=== PATIENT | male | born 1960 | race Caucasian/White ===

== ENCOUNTER 2020-04-24 13:34 | Outpatient (CLI) | payer OTHER, SELFPAY ==
--- NOTE | ~2020-04-24 | CT_ITS ---
EXAMINATION: CT lung screening DATE: 04/24/2020 13:52 INDICATION: Tobacco use TECHNIQUE: Computed tomography (CT) of the chest was performed without intravenous contrast. The dose -length product was 172.05 mGy-cm. Automated exposure control and iterative reconstruction technique were employed. COMPARISON: CT dated 03/24/2019 FINDINGS: No thoracic lymphadenopathy. No significant pleural or pericardial effusion. There is ather osclerosis of the aorta and coronary arteries. Heart size normal. The upper abdomen is unremarkable. Stable 3 mm left upper lobe nodule, image 40. 2 mm right upper lobe nodule, image 57. No new pulmonar y nodules or masses. No endobronchial lesions. No pneumothorax. No focal airspace consolidation. Mild thoracic spondylosis with accentuated kyphosis. IMPRESSION: 1. Lung-RADS category 2: Benign appearance or behavior. Continue annual screening with noncontrast lo w-dose chest CT in 12 months. Reviewed, dictated and finalized at location A. ECTION OFFICER SUPERVISOR IMPRESSION: 1. Lung-RADS category 2: Benign appearance or behavior. Continue annual screeni ng with noncontrast low-dose chest CT in 12 months.
== END 2020-04-24 13:35 | disposition home or self-care (01) ==
PROVIDERS: PCP Family Medicine; Visit Provider Physician Assistant
DX: Z12.2 Encounter for screening for malignant neoplasm of respiratory organs (principal); Z87.891 Personal history of nicotine dependence
CPT/HCPCS: G0297

== ENCOUNTER 2021-05-06 08:05 | Outpatient (CLI) | payer OTHER, SELFPAY ==
--- NOTE | ~2021-05-06 | CT_ITS ---
EXAMINATION: CT lung screening DATE: 05/06/2021 08:20 INDICATION: Personal history of nicotine dependence, current smoker with 30 pack year history TECHNIQUE: Computed tomography (CT) of the chest was performed without intravenous contrast. The dose -length product (DLP) was 156.75 mGy-cm. Automated exposure control and iterative reconstruction tech [employer] were employed. COMPARISON: 04/24/2020 FINDINGS: There is a stable 3 mm nodule in the left upper lobe on image 48. There is a 3 mm groundgla ss nodule of the left lower lobe on image 92. No pathologically enlarged thoracic lymph nodes are harsh ntified. There is no pleural effusion or pneumothorax. The heart size is normal. Calcified coronary a rtery atherosclerosis is noted. There is mild emphysema. There is mild thoracic spondylosis. IMPRESSION: 1. Lung-RADS category 2: Benign appearance or behavior. Continue annual screening with noncontrast lo w-dose chest CT in 12 months. Reviewed, dictated and finalized at location A. UNITY ENGAGEMENT COORDINATOR IMPRESSION: 1. Lung-RADS category 2: Benign appearance or behavior. Continue annual screeni ng with noncontrast low-dose chest CT in 12 months.
== END 2021-05-06 08:06 | disposition home or self-care (01) ==
LOC: ANHIMG 08:07
PROVIDERS: PCP Family Medicine; Visit Provider Physician Assistant
DX: Z12.2 Encounter for screening for malignant neoplasm of respiratory organs (principal); Z87.891 Personal history of nicotine dependence
CPT/HCPCS: 71271

== ENCOUNTER 2021-06-19 01:10 | Day surgery (SDC) | payer OTHER, SELFPAY ==
[2021-06-11 10:31] VITALS: BMI 29.7
--- NOTE | 2021-06-18 15:54 | PM.HPGS ---
History of Present Illness History of Present Illness Consent: Risks, benefits, and alternatives have been discussed and questions answered. Patient agrees to proceed with procedure. Chief complaint: change in bowel habits Narrative: Guanaco Headley is a 60 year old male referred for colonoscopy. He has had a change in his bowel habits. For the past year so he has had at least 3 or 4 bowel movements per day, , sometimes with leakage. Stopping his statin has improved the stool consistency minimally. Review of Systems Review of Systems: All systems reviewed & are unremarkable except as noted in HPI and below PMFSH Past Medical History Medical History Fonseca's esophagus without dysplasia Chronic GERD HTN (hypertension) IFG (impaired fasting glucose) Mixed hyperlipidemia Uncomplicated asthma Family History Family History Mother Hypertension Father Family history of malignant neoplasm of esophagus Other Family history of arthritis Malignant neoplasm of prostate Social History Social History Smoking packs per day: 2 Smoking cigarettes per day: 40.0 Years smoked: 30 Smoking pack-years: 60.00 Smoking status: Current every day smoker Tobacco type: cigarettes and cigars Second hand tobacco smoke exposure: No Smoking end date: 06/01/13 Additional smoking assessment comments: currently smokes cigars,stopped smoking cigarrettes 2011 Alcohol intake: current Drinks per week: 7 Substance use: never Substance use type: does not use Living arrangements: with family Gender identity (if verbalized by the patient): Male Sexual Orientation (if Verbalized by the Patient): Straight or Heterosexual Spiritual care concerns: No Meds Home Medications and Allergies Home Medications Medication Instructions Recorded Confirmed Type naproxen sodium 220 mg tablet 220 mg PO DAILY 05/02/19 06/11/21 History fluticasone 250 mcg-salmeterol 50 See Rx Instructions .ROUTE 07/16/20 06/11/21 Rx mcg/dose blistr powdr for .COMPLEX #60 each inhalation losartan 50 mg tablet 50 mg PO DAILY #90 tablet 12/04/20 06/11/21 Rx montelukast 10 mg tablet 10 mg PO DAILY #90 tablet 02/05/21 06/11/21 Rx albuterol sulfate 90 mcg/actuation 1 puff INHALATION Q4H PRN #18 gm 04/09/21 06/11/21 Rx aerosol inhaler omeprazole 40 mg capsule,delayed 40 mg PO DAILY #90 cap 04/09/21 06/11/21 Rx release rosuvastatin 5 mg tablet 5 mg PO DAILY #90 tablet 05/29/21 06/11/21 Rx metoprolol succinate 25 mg 25 mg PO DAILY #90 tablet 06/04/21 06/11/21 Rx tablet,extended release 24 hr Zyrtec 06/11/21 History aspirin [Aspirin Low Dose] 81 mg PO DAILY 06/11/21 06/11/21 History Allergies Allergy/AdvReac Type Severity Reaction Status Date / Time No Known Drug Allergies Allergy Unknown Unknown Verified 06/19/21 07:16 Exam Resp: Auscultation: clear to auscultation bilaterally Cardio: Rate: regular rate Rhythm: regular rhythm GI: GI Palp: Yes Soft to palpation and No Tenderness to palpation present (GI) Assessment and Plan Assessment and plan (1) Change in bowel habits: Code(s): R19.4 - Change in bowel habit Status: Acute Assessment and Plan: Colonoscopy with possible biopsy or polypectomy or cautery or injection of substances.
--- NOTE | 2021-06-19 02:21 | WPDANESEPPF ---
Anes - Initial Pre Proc Eval Procedure: Operation Date: 06/19/21 08:30 Proposed Procedures p Colonoscopy - Toni Vargas MD Date/Time: 06/19/21 02:21 Surgeon: Toni Vargas MD Pre Op Diagnosis: change in bowel habits Patient Data Age: 60 Gender: M Height: 1.78 m Weight: 94 kg Allergies Allergy/AdvReac Type Severity Reaction Status Date / Time No Known Drug Allergies Allergy Unknown Unknown Verified 06/19/21 07:16 Home Medications Medication Instructions Recorded Confirmed Type naproxen sodium 220 mg tablet 220 mg PO DAILY 05/02/19 06/11/21 History fluticasone 250 mcg-salmeterol 50 See Rx Instructions .ROUTE 07/16/20 06/11/21 Rx mcg/dose blistr powdr for .COMPLEX #60 each inhalation losartan 50 mg tablet 50 mg PO DAILY #90 tablet 12/04/20 06/11/21 Rx montelukast 10 mg tablet 10 mg PO DAILY #90 tablet 02/05/21 06/11/21 Rx albuterol sulfate 90 mcg/actuation 1 puff INHALATION Q4H PRN #18 gm 04/09/21 06/11/21 Rx aerosol inhaler omeprazole 40 mg capsule,delayed 40 mg PO DAILY #90 cap 04/09/21 06/11/21 Rx release rosuvastatin 5 mg tablet 5 mg PO DAILY #90 tablet 05/29/21 06/11/21 Rx metoprolol succinate 25 mg 25 mg PO DAILY #90 tablet 06/04/21 06/11/21 Rx tablet,extended release 24 hr Zyrtec 06/11/21 History aspirin [Aspirin Low Dose] 81 mg PO DAILY 06/11/21 06/11/21 History Patient hx anesthesia problems: none Family hx anesthesia problems: none Results Review: All pre-operative results and documents have been reviewed as part of the pre-operative evaluation. [facility] Past Medical History Medical History Fonseca's esophagus without dysplasia Chronic GERD HTN (hypertension) IFG (impaired fasting glucose) Mixed hyperlipidemia Uncomplicated asthma Family History Family History Mother Hypertension Father Family history of malignant neoplasm of esophagus Other Family history of arthritis Malignant neoplasm of prostate Social History Social History Smoking packs per day: 2 Smoking cigarettes per day: 40.0 Years smoked: 30 Smoking pack-years: 60.00 Smoking status: Current every day smoker Tobacco type: cigarettes and cigars Second hand tobacco smoke exposure: No Smoking end date: 06/01/13 Additional smoking assessment comments: currently smokes cigars,stopped smoking cigarret2011 Alcohol intake: current Drinks per week: 7 Substance use: never Substance use type: does not use Living arrangements: with family Gender identity (if verbalized by the patient): Male Sexual Orientation (if Verbalized by the Patient): Straight or Heterosexual Spiritual care concerns: No Anes - Eval Final PreProcedure Day of Procedure 06/19/21 02:21 Patient weight: overweight Heart: regular rate and rhythm Lungs: clear to auscultation and normal air movement Airway: Mallampati scale class II Neurological: alert and oriented Last oral intake: >/= 8 hours ASA classification: III Emergent: no Anesthetic plan: proceed Anesthesia type and monitoring: general GIVS and standard monitoring Results Review: All pre-operative results and documents have been reviewed as part of the pre-operative evaluation. Informed Consent: The patient's anesthetic plan and its attendant risks and benefits were discussed with the patient/family/POA. Questions were solicited and answers provided to the satisfaction of the patient/family/POA.
[2021-06-19 07:17] VITALS: BP 138/88; PULSE 77; RESP 18; TEMP 36.2; O2SAT 99; BMI 29.7
[2021-06-19] MEDS: LACTATED RINGERS 1,000 ML 150 ML IV CONT (07:27)
[2021-06-19 08:48] VITALS: BP 119/71; PULSE 75; RESP 19; O2SAT 94
[2021-06-19 08:58] VITALS: BP 130/88; PULSE 68; RESP 17; O2SAT 97
[2021-06-19 09:08] VITALS: BP 148/97; PULSE 71; RESP 19; O2SAT 99
== END 2021-06-19 09:14 | disposition home or self-care (01) ==
PROVIDERS: PCP Family Medicine; Visit Provider Internal Medicine Gastroenterology
PROC: 0DJD8ZZ Inspection of Lower Intestinal Tract, Via Natural or Artificial Opening Endoscopic (ICD-10-PCS; CPT 45378; principal; 2021-06-19 08:30)
DX: R19.4 Change in bowel habit (principal); K57.30 Diverticulosis of large intestine without perforation or abscess without bleeding; Z79.51 Long term (current) use of inhaled steroids; Z79.82 Long term (current) use of aspirin; I10 Essential (primary) hypertension; E78.2 Mixed hyperlipidemia; K21.9 Gastro-esophageal reflux disease without esophagitis; J45.909 Unspecified asthma, uncomplicated; F17.290 Nicotine dependence, other tobacco product, uncomplicated
CPT/HCPCS: 45378; J2001; J2704; J7120

== ENCOUNTER 2022-06-17 13:27 | Outpatient (CLI) | payer OTHER, SELFPAY ==
--- NOTE | ~2022-06-17 | CT_ITS ---
EXAMINATION:CT lung screening DATE: 06/17/2022 13:40 INDICATION: Tobacco use. Smoker who quit 11 years ago with 30 pack year history. TECHNIQUE: Computed tomography (CT) of the chest was performed without intravenous contrast. Automate d exposure control and iterative reconstruction technique were employed. The dose-length product (DLP ) was 345.46 mGy-cm. COMPARISON: Chest CT 05/06/2021 FINDINGS: There is mild emphysema. There is minimal atelectasis bilaterally. There is a 2 mm nodule i n right upper lobe. There is a 3 mm nodule in left upper lobe. No pleural effusion. The heart size is normal. There are coronary artery calcifications. No pericardial effusion. There is severe cervical spondylosis and mild thoracic spondylosis. There is mild chronic anterior wedging of multiple thoraci c vertebral bodies. IMPRESSION: 1. Lung-RADS category 2: Benign appearance or behavior. Continue annual screening with noncontrast lo w-dose chest CT in 12 months. Reviewed, dictated and finalized at location A. OR INFORMATION DEVELOPER IMPRESSION: 1. Lung-RADS category 2: Benign appearance or behavior. Continue annual screeni ng with noncontrast low-dose chest CT in 12 months.
== END 2022-06-17 13:28 | disposition home or self-care (01) ==
PROVIDERS: PCP Family Medicine; Visit Provider Physician Assistant
DX: Z12.2 Encounter for screening for malignant neoplasm of respiratory organs (principal); Z87.891 Personal history of nicotine dependence
CPT/HCPCS: 71271

== ENCOUNTER 2023-07-31 04:53 | Day surgery (SDC) | payer OTHER, SELFPAY ==
[2023-07-07 13:48] VITALS: BMI 29.4
--- NOTE | 2023-07-29 14:52 | SUR.PREOP ---
Procedure date and time verified with pt.
--- NOTE | 2023-07-29 19:16 | PM.HPGS ---
History of Present Illness History of Present Illness Consent: Risks, benefits, and alternatives have been discussed and questions answered. Patient agrees to proceed with procedure. Chief complaint: Family hx malignant neoplasm of digestive organs Narrative: Guanaco Headley is a 62 year old male who is referred for EGD due to family hx ofesoph Ca. Review of Systems Review of Systems: All systems reviewed & are unremarkable except as noted in HPI and below PMFSH Past Medical History Medical History Fonseca's esophagus without dysplasia Chronic GERD HTN (hypertension) IFG (impaired fasting glucose) Mixed hyperlipidemia Uncomplicated asthma Family History Family History Mother Hypertension Father Family history of malignant neoplasm of esophagus Other Family history of arthritis Malignant neoplasm of prostate Social History Social History Smoking packs per day: 2 Smoking cigarettes per day: 40.0 Years smoked: 30 Smoking pack-years: 60.00 Smoking status: Former smoker Tobacco type: cigarettes and cigars Second hand tobacco smoke exposure: No Smoking end date: 06/01/13 Additional smoking assessment comments: currently smokes cigars,stopped smoking cigarrettes 2011 Alcohol intake: current Drinks per week: 6 Alcohol use details: beer- social Substance use: never Substance use type: does not use Living arrangements: with family Occupation/Education: occupation Gender identity (if verbalized by the patient): Male Sexual Orientation (if Verbalized by the Patient): Straight or Heterosexual Spiritual care concerns: No Meds Home Medications and Allergies Home Medications Medication Instructions Recorded Confirmed Type naproxen sodium 220 mg tablet 220 mg PO DAILY 05/02/19 07/31/23 History (Aleve) aspirin 81 mg tablet,delayed 81 mg PO DAILY 06/11/21 07/31/23 History release ([place]helsea Low Dose Aspirin) losartan 100 mg tablet 100 mg PO DAILY #90 tabs 12/16/22 07/31/23 Rx metoprolol succinate 25 mg 25 mg PO DAILY #90 tabs 02/06/23 07/31/23 Rx tablet,extended release 24 hr rosuvastatin 5 mg tablet (Crestor) 5 mg PO DAILY #90 tabs 02/11/23 07/31/23 Rx montelukast 10 mg tablet 10 mg PO DAILY #90 tabs 03/03/23 07/31/23 Rx cetirizine 10 mg tablet (Zyrtec) 10 mg PO DAILY 07/07/23 07/31/23 History omeprazole 40 mg capsule,delayed 40 mg PO DAILY 07/07/23 07/31/23 History release albuterol sulfate 90 mcg/actuation See Rx Instructions .Route 07/24/23 07/31/23 Rx aerosol inhaler .COMPLEX #8.5 grams Allergies Allergy/AdvReac Type Severity Reaction Status Date / Time No Known Allergies Allergy Verified 07/31/23 07:34 Exam Const: General: alert Orientation/consciousness: patient oriented x3 Resp: Auscultation: clear to auscultation bilaterally Cardio: Rhythm: regular rhythm GI: GI Palp: Yes Soft to palpation and No Tenderness to palpation present (GI) Neuro: General: patient oriented x3 Assessment and Plan Assessment and plan (1) Chronic GERD: Code(s): K21.9 - Gastro-esophageal reflux disease without esophagitis Status: Acute Assessment and Plan: EGD with possible biopsy or dilatation or cautery.
[2023-07-31 07:37] VITALS: BP 145/88; PULSE 70; RESP 16; TEMP 36.4; O2SAT 99
[2023-07-31] MEDS: LACTATED RINGERS 1,000 ML 150 ML IV CONT (07:53)
--- NOTE | 2023-07-31 08:20 | WPDANESEPPF ---
Anes - Initial Pre Proc Eval Procedure: Operation Date: 07/31/23 08:30 Proposed Procedures p Esophagogastroduodenoscopy - Toni Vargas MD Date/Time: 07/31/23 08:20 Surgeon: Toni Vargas MD Pre Op Diagnosis: Family hx malignant neoplasm of digestive organs Patient Data Age: 62 Gender: M Height: 1.78 m Weight: 93.9 kg Last Vital Signs Temp 36.4 C 07/31/23 07:37 Pulse 70 07/31/23 07:37 Resp 16 07/31/23 07:37 BP 145/88 H 07/31/23 07:37 Pulse Ox 99 07/31/23 07:37 O2 Del Method Room Air 07/31/23 07:37 Allergies Allergy/AdvReac Type Severity Reaction Status Date / Time No Known Allergies Allergy Verified 07/31/23 07:34 Home Medications Medication Instructions Recorded Confirmed Type naproxen sodium 220 mg tablet 220 mg PO DAILY 05/02/19 07/31/23 History (Aleve) aspirin 81 mg tablet,delayed 81 mg PO DAILY 06/11/21 07/31/23 History release ([place]sea Low Dose Aspirin) losartan 100 mg tablet 100 mg PO DAILY #90 tabs 12/16/22 07/31/23 Rx metoprolol succinate 25 mg 25 mg PO DAILY #90 tabs 02/06/23 07/31/23 Rx tablet,extended release 24 hr rosuvastatin 5 mg tablet (Crestor) 5 mg PO DAILY #90 tabs 02/11/23 07/31/23 Rx montelukast 10 mg tablet 10 mg PO DAILY #90 tabs 03/03/23 07/31/23 Rx cetirizine 10 mg tablet (Zyrtec) 10 mg PO DAILY 07/07/23 07/31/23 History omeprazole 40 mg capsule,delayed 40 mg PO DAILY 07/07/23 07/31/23 History release albuterol sulfate 90 mcg/actuation See Rx Instructions .Route 07/24/23 07/31/23 Rx aerosol inhaler .COMPLEX #8.5 grams Patient hx anesthesia problems: none Family hx anesthesia problems: none Results Review: All pre-operative results and documents have been reviewed as part of the pre-operative evaluation. [facility] Past Medical History Medical History Fonseca's esophagus without dysplasia Chronic GERD HTN (hypertension) IFG (impaired fasting glucose) Mixed hyperlipidemia Uncomplicated asthma Family History Family History Mother Hypertension Father Family history of malignant neoplasm of esophagus Other Family history of arthritis Malignant neoplasm of prostate Social History Social History Smoking packs per day: 2 Smoking cigarettes per day: 40.0 Years smoked: 30 Smoking pack-years: 60.00 Smoking status: Former smoker Tobacco type: cigarettes and cigars Second hand tobacco smoke exposure: No Smoking end date: 06/01/13 Additional smoking assessment comments: currently smokes cigars,stopped smoking cigarrettes 2011 Alcohol intake: current Drinks per week: 6 Alcohol use details: beer- social Substance use: never Substance use type: does not use Living arrangements: with family Occupation/Education: occupation Gender identity (if verbalized by the patient): Male Sexual Orientation (if Verbalized by the Patient): Straight or Heterosexual Spiritual care concerns: No Anes - Eval Final PreProcedure Day of Procedure 07/31/23 08:20 Patient weight: overweight Heart: regular rate and rhythm Lungs: clear to auscultation Airway: Mallampati scale class II Neurological: alert and oriented Last oral intake: >/= 8 hours ASA classification: III Emergent: no Anesthetic plan: proceed Anesthesia type and monitoring: general GIVS and standard monitoring Results Review: All pre-operative results and documents have been reviewed as part of the pre-operative evaluation. Informed Consent: The patient's anesthetic plan and its attendant risks and benefits were discussed with the patient/family/POA. Questions were solicited and answers provided to the satisfaction of the patient/family/POA.
[2023-07-31 09:04] VITALS: BP 139/81; PULSE 73; RESP 22; O2SAT 99
[2023-07-31 09:14] VITALS: BP 140/77; PULSE 72; RESP 20; O2SAT 99
[2023-07-31 09:24] VITALS: BP 124/70; PULSE 67; RESP 20; O2SAT 99
== END 2023-07-31 09:32 | disposition home or self-care (01) ==
PROVIDERS: PCP Family Medicine; Visit Provider Internal Medicine Gastroenterology
PROC: 0DJ08ZZ Inspection of Upper Intestinal Tract, Via Natural or Artificial Opening Endoscopic (ICD-10-PCS; CPT 43235; principal; 2023-07-31 08:30)
DX: K21.00 Gastro-esophageal reflux disease with esophagitis, without bleeding (principal); K22.70 Barrett's esophagus without dysplasia; I10 Essential (primary) hypertension; E78.2 Mixed hyperlipidemia; J45.909 Unspecified asthma, uncomplicated; Z79.1 Long term (current) use of non-steroidal anti-inflammatories (NSAID); Z79.82 Long term (current) use of aspirin; Z79.51 Long term (current) use of inhaled steroids; Z87.891 Personal history of nicotine dependence; Z80.42 Family history of malignant neoplasm of prostate; Z80.0 Family history of malignant neoplasm of digestive organs
CPT/HCPCS: 43239; 88305; J2704; J7120

== ENCOUNTER 2024-07-13 09:57 | Outpatient (CLI) | payer OTHER, SELFPAY ==
--- NOTE | ~2024-07-13 | CT_ITS ---
CT Scan of the Chest without Contrast: Clinical Indication: Lung cancer screening, nicotine dependence Technique: Contiguous sections were acquired throughout the chest without intravenous contrast. Dose reduction technique was used on this scan by utilizing automated exposure control and iterative recon struction technique. The dose-length product (DLP) was 141.77 mGy-cm. COMPARISON: 06/17/2022 Findings: There is no evidence of any significant mediastinal, hilar or axillary lymphadenopathy. The mediastin al soft tissues appear normal. There is no evidence of pleural or pericardial effusion. The lungs are clear. No pulmonary nodules or infiltrates are noted. Images through the upper abdomen reveal no abnormalities. Impression: Lung RADS 1: Negative. 12 month follow-up screening CT advised. Reviewed, dictated and finalized at location . [facility] Impression: Lung RADS 1: Negative. 12 month follow-up screening CT advised.
--- OUTSIDE RECORDS SUMMARY | 2024-07-13 10:56 | XMS_ITS | Continuity of Care Document ---
Author Name [facility] Organization [facility] Care Team Providers Care [employer] Blower Name Role Phone [facility] Unavailable Unavailable Problems Combined list of problems from Department of Defense and Veterans Affairs facilities. It does not include entries that were removed or entered in error. Problem Status Onset Date Problem Type Date of Resolution Comments Source backache Active Condition will refer to PT for further eval and treatment. DoD visit for: examination Active Condition 2808 and 2807 given to pt for completion - to have fasting labs done and will perform [employer] 5 year physical in conjunction with possible MEB for asthma. DoD asthma Active Condition Will dionne nue with current regimen of Advair, Singulair and rescue inhaler as needed. MEB will be performed. DoD Aftercare Orthopedic Active Condition DoD pain during urination (dysuria) Active Condition DoD Aftercare Following Surgery Active Condition DoD bronchospasm Inactive Condition will st art pt on Advair given frequency of use of Proventil - may continue to use proventil as rescue inhaler and will refer for PFT's with methacholine challenge to better confirm asthma - if so, will need MEB. 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 DoD Occupational Therapy Inactive Condition DoD umbilical hernia Active Condition DoD flat foot acquired (pes planus) Active Condition Will refer to [facility]. DoD lateral epicondylitis (tennis elbow) Active Condition ASSESSMENT/PL AN: All goals of occupational therapy have been -- discharge from OT. 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 [facility] routine history and physical adult (18 - 64 yrs) Inactive Condition Patient cleared for surgery [facility] visit for: preoperative orthopedic exam Inactive Condition Right knee medial meniscal tear DoD internal derangement of posterior horn medial meniscus of knee Active Condition B/L knees - Right knee more symptomatic than Left knee DoD acute meniscal tear lateral Active Condition DoD joint pain, localized in the knee Active Condition Reviewed results, patient informed of referral and contact # to call to schedule an appointment. Patient verbalized understanding. [facility] visit for: administrative purpose Active Condition DoD Blood Pressure Isolated Elevated Inactive Condition Pt to keep a BP log and to follow-up with log in 3-4 weeks. DoD Medications Combined list of outpatient medications from Department of Defense and Veterans Affairs facilities.Medications provided include 1) outpatient medications from the last 15 months, and 2) patient-reported medications. Medication Details Route Status Patient Instructions Prescription Expires Prescription Number Last Dispense Date Ordering Provider Order Date Order Qty Source ALBUTEROL SULFATE HFA (albuterol sulfate), 90 MCG, HFA AER AD, INHALATION, [place], 8.5 g CANISTER Active [id number] 4 2023 8.5 Pharmac y Data Transac tion Service Facilit y ALBUTEROL SULFATE HFA (albuterol sulfate), 90 MCG, HFA AER AD, INHALATION, [place], 8.5 g CANISTER Active [id number] 4 2023 8.5 Pharmac y Data Transac tion Service Facilit y ALBUTEROL SULFATE HFA (albuterol sulfate), 90 MCG, HFA AER AD, INHALATION, [place], 8.5 g CANISTER Active [id number] 4 2023 8.5 Pharmac y Data Transac tion Service Facilit y ALBUTEROL SULFATE HFA (albuterol sulfate), 90 MCG, HFA AER AD, INHALATION, [place], 8.5 g CANISTER Active [id number] 4 2023 8.5 Pharmac y Data Transac tion Service Facilit y ALBUTEROL SULFATE HFA (albuterol sulfate), 90 MCG, HFA AER AD, INHALATION, [place], 8.5 g CANISTER Active [id number] 4 2023 8.5 Pharmac y Data Transac tion Service Facilit y ALBUTEROL SULFATE HFA (albuterol sulfate), 90 MCG, HFA AER AD, INHALATION, [place], 8.5 g CANISTER Active [id number] 4 2023 8.5 Pharmac y Data Transac tion Service Facilit y ALBUTEROL SULFATE HFA (albuterol sulfate), 90 MCG, HFA AER AD, INHALATION, [place], 8.5 g CANISTER Active [id number] 4 2023 8.5 Pharmac y Data Transac tion Service Facilit y ALBUTEROL SULFATE HFA (albuterol sulfate), 90 MCG, HFA AER AD, INHALATION, [place], 8.5 g CANISTER Active [id number] 3 2022 8.5 Pharmac y Data Transac tion Service Facilit y ALBUTEROL SULFATE HFA (albuterol sulfate), 90 MCG, HFA AER AD, INHALATION, [place], 8.5 g CANISTER Active [id number] 4 2023 8.5 Pharmac y Data Transac tion Service Facilit y ALBUTEROL SULFATE HFA (albuterol sulfate), 90 MCG, HFA AER AD, INHALATION, [place], 8.5 g CANISTER Active [id number] 4 2023 8.5 Pharmac y Data Transac tion Service Facilit y ALBUTEROL SULFATE HFA (albuterol sulfate), 90 MCG, HFA AER AD, INHALATION, [place]EVA [place], 8.5 g CANISTER Active [id number] 4 2023 8.5 Pharmac y Data Transac tion Service Facilit y AMOX TR-POTASSIU M CLAVULANATE (AMOXICILLI N/POTASSIUM CLAV), 500-125 MG, TABLET, ORAL, SANDOZ, 20 ea. BOTTLE Active [id number] 4 2023 21 Pharmac y Data Transac tion Service Facilit y AMOXICILLIN (AMOXICILLI N), 500 MG, CAPSULE, ORAL, SANDOZ, 500 ea. BOTTLE Active [id number] 4 2023 28 Pharmac y Data Transac tion Service Facilit y LOSARTAN POTASSIUM (losartan potassium), 100 MG, TABLET, ORAL, XLCARE PHARMACE, 1000 ea. BOTTLE Active [id number] 4 2023 90 Pharmac y Data Transac tion Service Facilit y METHYLPREDN ISOLONE (methylpred nisolone), 4 MG, TAB DS PK, ORAL, ZYDUS PHARMACEU, 21 ea. DOSE-PACK Active [id number] 4 2023 21 Pharmac y Data Transac tion Service Facilit y METOPROLOL SUCCINATE (metoprolol succinate), 25 MG, TAB ER 24H, ORAL, [employer] 1000 ea. BOTTLE Active [id number] 4 2023 90 Pharmac y Data Transac tion Service Facilit y METOPROLOL SUCCINATE (metoprolol succinate), 25 MG, TAB ER 24H, ORAL, [employer] 1000 ea. BOTTLE Active [id number] 4 2023 90 Pharmac y Data Transac tion Service Facilit y MONTELUKAST SODIUM (montelukas t sodium), 10 MG, TABLET, ORAL, XLCARE PHARMACE, 90 ea. BOTTLE Active [id number] 4 2023 90 Pharmac y Data Transac tion Service Facilit y MONTELUKAST SODIUM (montelukas t sodium), 10 MG, TABLET, ORAL, [employer] PHARMACE, 90 ea. BOTTLE Active [id number] 4 2023 90 Pharmac y Data Transac tion Service Facilit y OMEPRAZOLE (omeprazole ), 40 MG, CAPSULE DR, ORAL, AUROB[employer]O PHARM, 500 ea. BOTTLE Cancele d [id number] : 2023 0 Pharmac y Data Transac tion Service Facilit y ROSUVASTATI N CALCIUM (rosuvastat in calcium), 5 MG, TABLET, ORAL, [employer] 1000 ea. BOTTLE Active [id number] 2023 90 Pharmac y Data Transac tion Service Facilit y ROSUVASTATI N CALCIUM (rosuvastat in calcium), 5 MG, TABLET, ORAL, [employer] 1000 ea. BOTTLE Cancele d [id number] : 2023 0 Pharmac y Data Transac tion Service Facilit y Allergies, Adverse Reactions, Alerts Combined list of allergies from Department of Defense and Veterans Affairs facilities. It does not include entries that were removed or entered in error. Substance Category Reaction Severity Reaction type Status Date Reported Comments Source OTHER Drug allergy (disorder) Unknown active 7 [employer] ([facility]) OTHER Propensity to adverse reactions to drug Unknown Active 7 71 93.1KG [id number] Ambulatory Pharmacy Immunizations Combined list of available immunizations from the Department of Defense and Veterans Affairs facilities. Immunization Series Date Given Administered By Site Reaction Lot Number CVX Code Drug [employer] Status Comments Source RSV vaccine preF3, recombinant 2022 303 GlaxoSmithKli ne complet ed RSV vaccine preF3, recombina nt 03/17/23 Given Ambulat ory Pharmac y Influenza, inj, MDCK, quadrivalent- pf 2022 171 Seqirus complet ed Influenza , inj, MDCK, quadrival ent-pf 03/17/23 Given Ambulat ory Pharmac y Influenza, inj, MDCK, quadrivalent- pf 2021 171 [employer] complet ed Influenza , inj, MDCK, quadrival ent-pf 04/01/22 Given Ambulat ory Pharmac y SARS-CoV-2 (COVID-19) Ad26 vaccine, rec 2020 212 complet ed SARS-CoV- 2 (COVID-19 ) Ad26 vaccine, rec 05/13/21 Given Ambulat ory Pharmac y COVID-19 vaccine, vector-nr, rS-Ad26, PF, 0.5 mL 2020 ALUL, () Not Given COVID-19 vaccine, vector-nr , rS-Ad26, PF, 0.5 mL DoD influenza virus vaccine, inactivated 2020 88 complet ed influenza virus vaccine, inactivat ed 04/02/21 Given Ambulat ory Pharmac y influenza, recombinant, quadrivalent, injectable, preservative free 2020 ALUL, () Not Given influenza , recombina nt, quadrival ent,injec table, preservat shima free DoD SARS-CoV-2 (COVID-19) Ad26 vaccine, rec 2020 212 complet ed SARS-CoV- 2 (COVID-19 ) Ad26 vaccine, rec 10/18/20 Given Ambulat ory Pharmac y COVID-19 vaccine, vector-nr, rS-Ad26, PF, 0.5 mL 2020 BIPINAL () Not Given COVID-19 vaccine, vector-nr , rS-Ad26, PF, 0.5 mL DoD influenza virus vaccine, inactivated 2019 88 complet ed influenza virus vaccine, inactivat ed 03/06/20 Given Ambulat ory Pharmac y influenza, recombinant, quadrivalent, injectable, preservative free 2019 ALUL, () Not Given influenza , recombina nt, quadrival ent,injec table, preservat shima free DoD zoster vaccine, inactivated 2019 187 complet ed zoster vaccine, inactivat ed 07/12/19 Given Ambulat ory Pharmac y zoster recombinant 2019 ALUL, () Not Given zoster recombina nt DoD zoster vaccine, inactivated 2018 187 GlaxoSmithKli ne complet ed zoster vaccine, inactivat ed 03/21/19 Given Ambulat ory Pharmac y typhoid Vi capsular polysaccharid e vac 2006 F0246-0 101 sanofi pasteur complet ed typhoid Vi capsular polysacch aride vac 04/27/07 Given Ambulat ory Pharmac y anthrax vaccine 2006 [id number] [employer] complet ed anthrax vaccine 04/27/07 Given Ambulat ory Pharmac y HepB, Adult 2006 [id number] 43 GlaxoSmithKli ne complet ed HepB, Adult 04/27/07 Given Ambulat ory Pharmac y anthrax vaccine 5 2006 [id number] [employer] [place] (MIP) complet ed anthrax vaccine DoD hepatitis B vaccine, adult dosage 1 2006 [id number] 43 [facility] (SKB) complet ed hepatitis B vaccine, adult dosage DoD typhoid Vi capsular polysaccharid e vaccine 1 2006 [id number] 101 Sanofi Pasteur (PMC) complet ed typhoid Vi capsular polysacch aride vaccine DoD influenza virus vaccine,split 2006 15 complet ed influenza virus vaccine,s plit 03/22/07 Given Ambulat ory Pharmac y influenza virus vaccine, split virus (incl. purified surface antigen)-reti red CODE 1 2006 15 Transcribed (TRS) complet ed influenza virus vaccine, split virus (incl. purified surface antigen)- retired CODE DoD tetanus-dipht h toxoids (Td) adult/adol 2004 09 complet ed tetanus-d iphth toxoids (Td) adult/ado l 09/18/04 Given Ambulat ory Pharmac y yellow fever vaccine 2004 37 complet ed yellow fever vaccine 09/18/04 Given Ambulat ory Pharmac y tetanus and diphtheria toxoids, adsorbed, preservative free, for adult use (2 Lf of tetanus toxoid and 2 Lf of diphtheria toxoid) 1 2004 09 Transcribed (TRS) complet ed tetanus and diphtheri a toxoids, adsorbed, preservat shima free, for adult use (2 Lf of tetanus toxoid and 2 Lf of diphtheri a toxoid) DoD yellow fever vaccine 1 2004 37 Transcribed (TRS) complet ed yellow fever vaccine DoD tuberculin purified protein derivative 2004 96 complet ed Patient Tolerance : Negative Ambulat ory Pharmac y tuberculin skin test; purified protein derivative solution, intradermal 1 2004 Unknown, Provider 96 Transcribed (TRS) complet ed tuberculi n skin test; purified protein derivativ e solution, intraderm al DoD anthrax vaccine 2002 24 complet ed anthrax vaccine 12/13/02 Given Ambulat ory Pharmac y anthrax vaccine 5 2002 24 Transcribed (TRS) complet ed anthrax vaccine DoD anthrax vaccine 2002 24 complet ed anthrax vaccine 06/30/02 Given Ambulat ory Pharmac y vaccinia (smallpox) vaccine 2002 75 complet ed vaccinia (smallpox ) vaccine 06/30/02 Given Ambulat ory Pharmac y anthrax vaccine 4 2002 24 Transcribed (TRS) complet ed anthrax vaccine DoD vaccinia (smallpox) vaccine 1 2002 75 Transcribed (TRS) complet ed vaccinia (smallpox ) vaccine DoD hepatitis A adult vaccine 1997 52 complet ed hepatitis A adult vaccine 05/10/98 Given Ambulat ory Pharmac y hepatitis A vaccine, adult dosage 2 1997 52 Transcribed (TRS) complet ed hepatitis A vaccine, adult dosage DoD anthrax vaccine 1997 24 complet ed anthrax vaccine 12/24/97 Given Ambulat ory Pharmac y anthrax vaccine 3 1997 24 Transcribed (TRS) complet ed anthrax vaccine DoD anthrax vaccine 1997 24 complet ed anthrax vaccine 12/10/97 Given Ambulat ory Pharmac y anthrax vaccine 2 1997 24 Transcribed (TRS) complet ed anthrax vaccine DoD anthrax vaccine 1997 24 complet ed anthrax vaccine 11/26/97 Given Ambulat ory Pharmac y anthrax vaccine 1 1997 24 Transcribed (TRS) complet ed anthrax vaccine DoD hepatitis A adult vaccine 1997 52 complet ed hepatitis A adult vaccine 06/20/97 Given Ambulat ory Pharmac y hepatitis A vaccine, adult dosage 1 1997 52 Transcribed (TRS) complet ed hepatitis A vaccine, adult dosage DoD measles/mumps /rubella virus vaccine 1983 03 complet ed measles/m umps/rube lla virus vaccine 01/06/84 Given Ambulat ory Pharmac y poliovirus vaccine, live, oral 1983 02 complet ed polioviru s vaccine, live, oral 01/06/84 Given Ambulat ory Pharmac y trivalent poliovirus vaccine, live, oral 1 1983 02 Transcribed (TRS) complet ed trivalent polioviru s vaccine, live, oral DoD measles, mumps and rubella virus vaccine 1 1983 03 Transcribed (TRS) complet ed measles, mumps and rubella virus vaccine DoD Encounters Combined list of: 1) Encounters from Department of Veterans Affairs facilities going backup to the last 18 months, not all VA inpatient encounters are included; 2) Encounters from the Department of Defense facilities going backup to 280 months. Location Location Details Encounter Type Encounter Number Reason For Visit Attending Provider ADM Date DC Date Status Disposition Source [address] [place] [address] [facility] MART[facility]NEZ ([facility])(Fam giancarlo Practice Non-GME FHI2) OUTPATIENT [id number] R KNEE PAIN HERRERA JUAN 09/24 Released w/o Limitations [address] [place] [address] [employer] [facility] ([facility])(F amily Practic e Non-GME FHI2) [address] [place] [address] [place] YUKOB ([facility])([facility] Practice Non-GME FHI2) TELE CONSULT [id number] rad results /mri CLAUDIOJOSEJAC A 09/[address] [place] [address] [facility] YUKOB ([facility])(F amily Practic e Non-GME FHI2) [address] [place] [address] [employer] YUKOB ([facility])([facility] Practice Non-GME FHI2) TELE CONSULT [id number] MRI r knee results /referr al JAC CLAUDIO A 10/[address] [place] [address] [facility] YUKOB ([facility])(F amily Practic e Non-GME FHI2) [address] [place] [address] [facility] HUNTLEYB ([facility] OUTPATIENT [id number] right knee pain ISABELBOB COLTEN R M 10/13 Released w/o Limitations [address] [place] [address] [employer] YUKOB ([facility])(V A - Orthope dics) [address] [place] [address] [facility] HUNTLEY[facility] ([facility])([place] - Orthopedi ) OUTPATIENT [id number] knee pain RYAN CASTREJONE R M 03/20 Released w/o Limitations [address] [place] [address] [facility] ([facility])(V A - Orthope dics) [address] [place] [address] [facility] [facility] ([facility])([place] - Orthopedi ) OUTPATIENT [id number] knee FUCBOB COLTEN R M 04/01 Released w/o Limitations [address] [place] [address] [facility] [facility] ([facility])(V A - Orthope dics) [address] [place] [address] [facility] [facility] ([facility])([place] - Orthopedi ) OUTPATIENT [id number] f/u MRI possibl e surgery MANDEEP ASTUDILLO 04/21 Released w/o Limitations [address] [place] [address] [employer] ([facility])(V A - Orthope dics) [address] [place] [address] [facility] [facility] ([facility])([place] - Orthopedi ) OUTPATIENT [id number] svitlana qiu NEIL L 05/28 Released w/o Limitations [address] [place] [address] [employer] [facility] ([facility])(V A - Orthope dics) [address] [place] [address] [place] [facility] ([facility])([facility] Non-GME FHI1) OUTPATIENT [id number] surgica l clearan ce/pt to have surg on Jun in the [facility] VICTOR MANUEL ABEL P 05/28 Released w/o Limitations [address] [place] [address] [place] [facility] ([facility])(F amily Practic e Non-GME FHI1) [address] [place] [address] [place] [facility] Practice Non-GME FHI1) TELE CONSULT [id number] Xray results , and med trial VICTOR MANUEL ABEL P 06/[address] [place] [address] [employer] Y[place]OB ([facility])(F amily Practic e Non-GME FHI1) [address] [place] [address] [place] B ([facility])([place] - Orthopedi cs) OUTPATIENT [id number] POP MANDEEP ASTUDILLO 06/23 Released w/o Limitations [address] [place] [address] [employer] [facility]OB ([facility])(V A - Orthope dics) [address] [place] [address] [employer] [facility] Orthopedi cs) OUTPATIENT [id number] f/u rt knee MANDEEP ASTUDILLO 07/24 Released w/o Limitations [address] [place] [address] [employer] B ([facility])(V A - Orthope dics) [address] [place] [address] [facility] B [facility]Opt ometry) OUTPATIENT [id number] ROUTINE EYE EXAM. PHONE:[phone]*C NIKOLAY BILL 09/15 Released w/o Limitations [address] [place] [address] [employer] ([facility])(O ptometr y) [address] [place] [address] [employer] B ([facility])([facility] Non-GME FHI2) OUTPATIENT [id number] TENNIS ELBOW [phone] HERRERA JUAN 11/12 Released w/o Limitations [address] [place] [address] [employer] ([facility])(F amily Practic e Non-GME FHI2) [address] [place] [address] [place] B [facility]Occ upational Therapy) OUTPATIENT [id number] LATERAL EPICOND YLITIS (TENNIS ELBOW) LATOYA MANUEL 11/18 Released w/o Limitations [address] [place] [address] [employer] ([facility])(O ccupati onal Therapy ) [address] [place] [address] [place] B [facility]Occ upational Therapy) OUTPATIENT [id number] DAVID BARRAGAN 11/19 Released w/o Limitations [employer] ([facility])(O ccupati onal Therapy ) [employer] ([facility])(Occ upational Therapy) OUTPATIENT [id number] DAVID BARRAGAN 11/23 Released w/o Limitations [employer] ([facility])(O ccupati onal Therapy ) [employer] ([facility])(Occ upational Therapy) OUTPATIENT [id number] DAVID BARRAGAN 11/25 Released w/o Limitations [employer] ([facility])(O ccupati onal Therapy ) [employer] ([facility])(Occ upational Therapy) OUTPATIENT [id number] DAVID BARRAGAN 12/01 Released w/o Limitations [employer] ([facility])(O ccupati onal Therapy ) [employer] ([facility])(Occ upational Therapy) OUTPATIENT [id number] DAVID BARRAGAN 12/03 Released w/o Limitations [employer] ([facility])(O ccupati onal Therapy ) [employer] ([facility])(Occ upational Therapy) OUTPATIENT [id number] HAILEY ROMAN 12/08 Released w/o Limitations [employer] ([facility])(O ccupati onal Therapy ) [employer] ([facility])(Occ upational Therapy) OUTPATIENT [id number] HAILEY ROMAN 12/10 Released w/o Limitations [employer] ([facility])(O ccupati onal Therapy ) [employer] ([facility])(Occ upational Therapy) OUTPATIENT [id number] JESSIEHAILEY 12/16 Released w/o Limitations [employer] ([facility])(O ccupati onal Therapy ) [employer] ([facility])(Occ upational Therapy) OUTPATIENT [id number] LATOYA MANUEL 12/25 Released w/o Limitations [employer] ([facility])(O ccupati onal Therapy ) [employer] ([facility])(Occ upational Therapy) OUTPATIENT [id number] DAVID BARRAGAN 01/05 Released w/o Limitations [employer] ([facility])(O ccupati onal Therapy ) [employer] ([facility])(Occ upational Therapy) OUTPATIENT [id number] DAVID BARRAGAN 01/07 Released w/o Limitations [employer] ([facility])(O ccupati onal Therapy ) [employer] ([facility])(Occ upational Therapy) OUTPATIENT [id number] DAVID BARRAGAN 01/19 Released w/o Limitations [employer] [facility] ([facility])(O ccupati onal Therapy ) [employer] ([facility])(Occ upational Therapy) OUTPATIENT [id number] DAVID BARRAGAN 01/21 Released w/o Limitations [employer] [facility] ([facility])(O ccupati onal Therapy ) [facility] [employer] ([facility])(Occ upational Therapy) OUTPATIENT [id number] LATOYA MANUEL 01/27 Released w/o Limitations [employer] [facility] ([facility])(O ccupati onal Therapy ) [employer] ([facility])([facility]) OUTPATIENT [id number] STACIE HERRERA BARNES 04/29 Released w/o Limitations [employer] [facility] ([facility])([facility]) [employer] [facility] [employer] ([facility])([facility] Non-GME FHI2) OUTPATIENT [id number] Consult ation [facility] ent Reza gonzalez W# HERRERA JUAN 05/03 Released w/o Limitations [employer] [facility] ([facility])(F amily Practic e Non-GME FHI2) [employer] ([facility])(Fam giancarlo Practice Non-GME FHI2) TELE CONSULT [id number] FARRUKH WILLIAM 05/07 [employer] ([facility])(F amily Practic e Non-GME FHI2) [employer] ([facility])(Gen eral Surgery) OUTPATIENT [id number] UMBILIC AL HERNIA HILDA VELÁZQUEZ 05/19 Released w/o Limitations [address] [place] [address] [employer] ([facility])(G eneral Surgery ) [address] [place] [address] [employer] ([facility])([place] - Orthopedi cs) OUTPATIENT [id number] ACUTE MENISCA L TEAR LATERAL NIKOLAY ARNOLD 05/20 Released w/o Limitations [address] [place] [address] [employer] ([facility])(V A - Orthope dics) [address] [place] [address] [employer] [facility])(Pul monary Functions ) OUTPATIENT [id number] Broncho spasm MAI WEEKS 05/26 Released w/o Limitations [address] [place] [address] [employer] ([facility])(P ulmonar y Functio ns) [address] [place] [address] [employer] [facility] Practice Non-GME FHI1) TELE CONSULT [id number] results /req [facility] FARRUKH Watkins 06/[address] [place] [address] [employer] ([facility])(F amily Practic e Non-GME FHI1) [address] [place] [address] [employer] [facility])(Gen eral Surgery) OUTPATIENT [id number] postop, HILDA Diaz 07/08 Released w/o Limitations [address] [place] [address] [employer] ([facility])(G eneral Surgery ) [address] [place] [address] [employer] ([facility])([facility] Practice Non-GME FHI2) OUTPATIENT [id number] FU PULMONA RY TESTS PER HERRERA MUÑOZ 07/08 Released w/o Limitations [address] [place] [address] [employer] ([facility])(F amily Practic e Non-GME FHI2) [address] [place] [address] [employer] [facility] Practice Non-GME FHI2) TELE CONSULT [id number] [facility] FARRUKH Watkins 07/[address] [place] [address] [employer] [facility])(F amily Practic e Non-GME FHI2) [address] [place] [address] [employer] [facility] - Orthoped[facility] cs) OUTPATIENT [id number] preop NIKOLAY ARNOLD 08/08 Released w/o Limitations [address] [place] [address] [employer] [facility]V A - Orthope dics) [address] [place] [address] [employer] [facility])(Gen eral Surgery) OUTPATIENT [id number] f/u, HILDA Diaz 08/09 Released w/o Limitations [address] [place] [address] [employer] ([facility])(G eneral Surgery ) [address] [place] [address] [employer] [facility] - Orth[facility] cs) OUTPATIENT [id number] postop, NIKOLAY Reyes 08/29 Released w/o Limitations [address] [place] [address] [employer] [facility])(V A - Orthope dics) [address] [place] [address] [employer] [facility])(Fam giancarlo Practice Non-GME FHI1) TELE CONSULT [id number] refill meds/mo FARRUKH Alfonso 09/[address] [place] [address] [employer] [facility])(F amily Practic e Non-GME FHI1) [address] [place] [address] [employer] [facility]Fam giancarlo Practice Non-GME FHI2) OUTPATIENT [id number] asthma fol HERRERA JUAN 09/16 Released w/o Limitations [address] [place] [address] [employer] [facility])(F amily Practic e Non-GME FHI2) [address] [place] [address] [employer] [facility]Fam giancarlo Practice Non-GME FHI2) OUTPATIENT [id number] 5year physica l/meHERRERA Cowart 10/03 Released w/o Limitations [address] [place] [address] [employer] [facility])(F amily Practic e Non-GME FHI2) [address] [place] [address] [employer] [facility])(Opt ometry) OUTPATIENT [id number] routine eye exam MATTY BUTTERFIELD 10/10 Released w/o Limitations [address] [place] [address] [employer] [facility]O ptometr y) [address] [place] [address] [employer] [facility]Fam giancarlo Practice Non-GME FHI2) OUTPATIENT [id number] retirem ent gonzaloy. HERRERA JUAN 03/15 Released w/o Limitations [address] [place] [address] [employer] [facility])(F amily Practic e Non-GME FHI2) [facility] Outpatient Encounter [id number] 8 12/13 [facility] Procedures Combined list of: 1) Procedures from Department of Veterans Affairs facilities going back up to thelast 18 months, not all VA non-surgical procedures are included; 2) All procedures from the Department of Defense facilities. Procedure Procedure Type Code Date Perfomer Comments Sourc e LASER IN SITU KERATOMILEUSIS (LASIK) DoD COMPUTERIZED CORNEAL TOPOGRAPHY, UNILATERAL DoD PURE TONE AUDIOMETRY (THRESHOLD); AIR ONLY 005 DoD OPHTHALMOLOGICAL SERVICES: MEDICAL EXAMINATION AND EVALUATION, WITH INITIATION OR CONTINUATION OF DIAGNOSTIC AND TREATMENT PROGRAM; INTERMEDIATE, ESTABLISHED PATIENT DoD OPHTHALMOLOGICAL SERVICES: MEDICAL EXAMINATION AND EVALUATION, WITH INITIATION OR CONTINUATION OF DIAGNOSTIC AND TREATMENT PROGRAM; INTERMEDIATE, ESTABLISHED PATIENT DoD SCREENING TEST, PURE TONE, AIR ONLY 004 DoD DETERMINATION OF REFRACTIVE STATE 003 DoD SCREENING TEST, PURE TONE, AIR ONLY 002 DoD DETERMINATION OF VENOUS PRESSURE 002 DoD SCREENING TEST, PURE TONE, AIR ONLY 002 DoD SCREENING TEST, PURE TONE, AIR ONLY 002 DoD DETERMINATION OF REFRACTIVE STATE DoD EDUCATIONAL SUPPLIES, SUCH BOOKS, TAPES, AND PAMPHLETS, FOR THE PATIENT'S EDUCATION AT COST TO PHYSICIAN OR OTHER QUALIFIED HEALTH PROCESS SUPERVISOR DoD EDUCATIONAL SUPPLIES, SUCH BOOKS, TAPES, AND PAMPHLETS, FOR THE PATIENT'S EDUCATION AT COST TO PHYSICIAN OR OTHER QUALIFIED HEALTH PROCESS SUPERVISOR DoD DETERMINATION OF VENOUS PRESSURE DoD EDUCATIONAL SUPPLIES, SUCH BOOKS, TAPES, AND PAMPHLETS, FOR THE PATIENT'S EDUCATION AT COST TO PHYSICIAN OR OTHER QUALIFIED HEALTH PROCESS SUPERVISOR DoD EDUCATIONAL SUPPLIES, SUCH BOOKS, TAPES, AND PAMPHLETS, FOR THE PATIENT'S EDUCATION AT COST TO PHYSICIAN OR OTHER QUALIFIED HEALTH PROCESS SUPERVISOR DoD EDUCATIONAL SUPPLIES, SUCH BOOKS, TAPES, AND PAMPHLETS, FOR THE PATIENT'S EDUCATION AT COST TO PHYSICIAN OR OTHER QUALIFIED HEALTH PROCESS SUPERVISOR DoD VISUAL FIELD EXAMINATION, UNI OR BILATERAL, WITH MEDICAL DIAGNOSTIC EVAL; INTERMEDIATE EXAM (EG, AT LEAST 2 ISOPTERS ON GOLDMANN PERIMETER, OR SEMIQUANT, AUTO SUPRATHRESHOLD SCREEN PROGRAM, VASQUEZ 008 DoD POSTOPERATIVE FOLLOW-UP VISIT, NORMALLY INCLUDED IN THE SURGICAL PACKAGE, INDICATE THAT EVALUATION & MANAGEMENT SERVICE WAS PERFORMED DURING A POSTOPERATIVE PERIOD REASON RELATED ORIGINAL PROCEDURE 008 DoD SPIROMETRY, INCLUDING GRAPHIC RECORD, TOTAL AND TIMED VITAL CAPACITY, EXPIRATORY FLOW RATE MEASUREMENT(S), WITH OR WITHOUT MAXIMAL VOLUNTARY VENTILATION 007 DoD OCCUPATIONAL THERAPY RE-EVALUATION 007 DoD APPLICATION OF A MODALITY TO 1 OR MORE AREAS; ULTRASOUND, EACH 15 MINUTES 007 DoD APPLICATION OF A MODALITY TO 1 OR MORE AREAS; ULTRASOUND, EACH 15 MINUTES 007 DoD APPLICATION OF A MODALITY TO 1 OR MORE AREAS; ULTRASOUND, EACH 15 MINUTES 007 DoD APPLICATION OF A MODALITY TO 1 OR MORE AREAS; ULTRASOUND, EACH 15 MINUTES 007 DoD OCCUPATIONAL THERAPY RE-EVALUATION 007 DoD APPLICATION OF A MODALITY TO 1 OR MORE AREAS; ULTRASOUND, EACH 15 MINUTES 007 DoD APPLICATION OF A MODALITY TO 1 OR MORE AREAS; ULTRASOUND, EACH 15 MINUTES 007 DoD APPLICATION OF A MODALITY TO 1 OR MORE AREAS; ULTRASOUND, EACH 15 MINUTES 007 DoD APPLICATION OF A MODALITY TO 1 OR MORE AREAS; ULTRASOUND, EACH 15 MINUTES 007 DoD APPLICATION OF A MODALITY TO 1 OR MORE AREAS; ULTRASOUND, EACH 15 MINUTES 007 DoD APPLICATION OF A MODALITY TO 1 OR MORE AREAS; ULTRASOUND, EACH 15 MINUTES 007 DoD APPLICATION OF A MODALITY TO 1 OR MORE AREAS; ULTRASOUND, EACH 15 MINUTES 007 DoD APPLICATION OF A MODALITY TO 1 OR MORE AREAS; ULTRASOUND, EACH 15 MINUTES 007 DoD SELF-CARE/HOME MANAGMENT TRAIN (EG,ACT OF DAILY LIVING (ADL) &COMPENSAT TRAIN,MEAL PREPARATION,SAFETY PROCS,AND INSTRUCT IN USE OF ASST TECHNOLOGY DEV/ADPT EQUIP) DIR ONE-ON-ONE CONT,EA 15 MINUTES DoD FITTING OF SPECTACLES, EXCEPT FOR APHAKIA; BIFOCAL 007 DoD UNLISTED SPECIAL SERVICE, PROCEDURE OR REPORT DoD Visual Benson Test Intermediate Examination Visual Benson Test Intermediate Examination [id number] MATTY BUTTERFIELD DoD Spectacles Services Fitting Bifocal Except For Aphakia Spectacles Services Fitting Bifocal Except For Aphakia 04934 008 MATTY BUTTERFIELD [facility] Determination Of Refractive State Determination Of Refractive State 23536 008 MATTY BUTTERFIELD Ophthalmological Prior Patient Start Comprehensive Care Ophthalmological Prior Patient Start Comprehensive Care 25252 008 MATTY BUTTERFIELD [facility] Spirometry Spirometry 41566 007 MAI WEEKS [facility] Spirometry Post-bronchodilator Spirometry Post-bronchodilator 98027 007 MAI WEEKS [facility] Occupational Therapy Re-Evaluation Occupational Therapy Re-Evaluation 91217 007 LATOYA MANUEL [facility] Modalities Ultrasound Modalities Ultrasound 03592 007 YUNG, DAVID W [facility] Modalities Ultrasound Modalities Ultrasound 20505 007 YUNG, DAVID W [facility] Modalities Ultrasound Modalities Ultrasound 99067 007 YUNG, DAVID W [facility] Modalities Ultrasound Modalities Ultrasound 43864 007 YUNG, DAVID W [facility] Occupational Therapy Re-Evaluation Occupational Therapy Re-Evaluation 80983 007 LATOYA MANUEL [facility] Modalities Ultrasound Modalities Ultrasound 80050 007 JESSIE, HAILEY LAINE DoD Modalities Ultrasound Modalities Ultrasound 70376 007 JESSIE, HAILEY LAINE DoD Modalities Ultrasound Modalities Ultrasound 67958 007 JESSIE, HAILEY LAINE DoD Modalities Ultrasound Modalities Ultrasound 41391 007 YUNG, DAVID W DoD Modalities Ultrasound Modalities Ultrasound 03044 007 YUNG, DAVID W DoD Modalities Ultrasound Modalities Ultrasound 32479 007 YUNG, DAVID W DoD Modalities Ultrasound Modalities Ultrasound 53156 007 YUNG, DAVID W [facility] Modalities Ultrasound Modalities Ultrasound 53733 007 YUNG, DAVID W [facility] Patient Training And Self-Care Skills Patient Training And Self-Care Skills 50660 007 LATOYA MANUEL [facility] Occupational Therapy Evaluation Occupational Therapy Evaluation 38429 007 LATOYA MANUEL Ophthalmological New Patient Start Comprehensive Care Ophthalmological New Patient Start Comprehensive Care 11322 007 NIKOLAY BILL [facility] Visual Benson Test Intermediate Examination Visual Benson Test Intermediate Examination 36631 007 NIKOLAY BILL [facility] Determination Of Refractive State Determination Of Refractive State 61007 LANDY NIKOLAY Peg [facility] Spectacles Services Fitting Bifocal Except For Aphakia Spectacles Services Fitting Bifocal Except For Aphakia 77474 007 NIKOLAY BILL [facility] No data available for this section Ambulato ry Pharmacy Social History Combined list of available smoking, tobacco, and other social history from Department of Defense and Veterans Affairs facilities. Social History Type Response Date Comment Sourc e This section is an empty soc ial history section. [facility] Sexual Orientation Ambula tory Pharmacy Gender identity Ambulator y Pharmacy Male Ambulatory Pha rmacy Assessment and Plan Combined list of future care activities from Department of Defense and Veterans Affairs facilities (e.g., assessment and plan notes, appointments, orders, and referrals). Additional future care activities may be listed in the Plan of Care section. Result Assessment and Plan Date Source Assessment and Plan No data available for this section 07/13/2024 Ambulatory Pharmacy Functional Status Combined list of recent functional and cognitive assessments recorded at Department of Defense and Veterans Affairs (VA).VA Functional [place] Measurement (FIM) Scale: 1 = Total Assistance (Subject = 0% +), 2 = Maximal Assistance (Subject = 25% +), 3 = Moderate Assistance (Subject = 50% +), 4 = Minimal Assistance (Subject = 75% +), 5 = Supervision, 6 = Modified [place] (Device), 7 = Complete [place] (Timely, Safely). Assessment Date/Time Source Assessment Type Assessment Skill Assessment Score Assessment Details No data available for this section
== END 2024-07-13 09:58 | disposition home or self-care (01) ==
PROVIDERS: PCP Family Medicine; Visit Provider Physician Assistant
DX: Z12.2 Encounter for screening for malignant neoplasm of respiratory organs (principal); Z87.891 Personal history of nicotine dependence
CPT/HCPCS: 71271

== ENCOUNTER 2024-07-15 08:30 | Outpatient (CLI) | payer OTHER, SELFPAY ==
--- NOTE | ~2024-07-15 | MR_ITS ---
EXAMINATION: MR brain/brain stem wo/w con DATE: 07/15/2024 09:23 INDICATION: Anesthesia of skin TECHNIQUE: Magnetic resonance imaging (MRI) of the brain and brainstem was performed without and with 20 mL Multihance intravenous contrast. Sequences included sagittal and axial T1-weighted SE, axial d iffusion-weighted FS SE, axial 3D SWAN, axial T2-weighted FLAIR, and axial T2-weighted FSE. Postcontr ast axial and coronal T1-weighted SE was obtained. Apparent diffusion coefficient (ADC) maps were cre ated. COMPARISON: None. FINDINGS: There are no areas of restricted diffusion to suggest acute infarction. No intracranial hemorrhage or abnormal intracranial mass lesion. There are scattered areas of nonspecific increased T2-weighted si gnal intensity in the cerebral white matter, predominantly involving the deep and periventricular whi te matter. There are no intraparenchymal signal abnormalities seen on the other pulse sequences. The ventricles are symmetric and normal in size. There are no abnormal extra-axial fluid collections. Gilbert w voids are seen in the cerebral arteries on the T2-weighted sequences consistent with their expected patency. Mild mucosal thickening the ethmoid sinuses. Visualized orbits and soft tissues are unremar kable. There are no areas of abnormal enhancement on the post contrast images. IMPRESSION: 1. No acute intracranial process or abnormally enhancing brain lesions. 2. Mild scattered mesenteric white matter T2 hyperintensity which is within normal limits for age and likely sequela of chronic small vessel ischemic disease. Reviewed, dictated and finalized at location A. PI DEVELOPER IMPRESSION: 1. No acute intracranial process or abnormally enhancing brain lesions. 2. Mild scattered mesenteric white matter T2 hyperintensity which is within nor mal limits for age and likely sequela of chronic small vessel ischemic disease.
--- OUTSIDE RECORDS SUMMARY | 2024-07-15 08:38 | XMS_ITS | Referral Summary ---
Author Organization [facility] Address [address] [place] [address] Care Team Providers Care Tool Maker Apprentice Name Role Phone Antolin Mcintyre MD Primary Care Provider [phone] Source Comments [facility],non-owned Affiliates and Associated Physician Practices is amultiple site organization consisting of ambulatory clinics and hospital sitesin [place], [place], [place] and [place]. This disclosure is being madepursuant to the Care Everywhere program and may not contain all information available regarding this patient. Last updated 18.[facility] [employer] Allergies No known active allergies Medications * Be aware that medications may not be up to date on this document. Alwaysverify current medications with the patient. Medication Sig Dispensed Refills Start Date End Date Status omeprazole (PRILOSEC) 40 MG capsule Take 40 mg by mouth daily before breakfast Active fluticasone-salmetero l (ADVAIR) 250-50 MCG/DOSE inhaler Inhale 1 Puff by mouth 2 times daily Active albuterol HFA (PROVENTIL;VENTOLIN;P ROAIR) 108 (90 BASE) MCG/ACT inhaler Inhale 2 Puffs by mouth every 6 hours as needed Active montelukast (SINGULAIR) 10 MG tablet Take 10 mg by mouth at bedtime Active fluticasone propionate (FLONASE) 50 MCG/ACT nasal spray Ada 2 Sprays into each nostril once daily Active cetirizine (ZYRTEC ALLERGY) 10 MG gel capsule Take 10 mg by mouth once daily Active Active Problems Problem Noted Date Diagnosed Date Chest pain 09/11/2015 Near syncope 09/11/2015 Social History Tobacco Use Types Packs/Day Years Used Date Smoking Tobacco: Former Alcohol Use Standard Drinks/Week Comments No 0 (1 standard drink = 0.6 oz pur e alcohol) Sex and Gender Information Value Date Recorded Sex Assigned at Not on file Gender Identity Not on file Sexual Orientation Not on file Last Filed Vital Signs Vital Sign Reading Time Taken Comments Blood Pressure 138/91 10/19/2015 10:24 AM CDT Pulse 71 10/19/2015 10:24 AM CDT Temperature 36.8 C (98.2 F) 09/12/2015 3:02 PM CDT Respiratory Rate 18 09/12/2015 3:02 PM CDT Oxygen Saturation 95% 09/12/2015 3:02 PM CDT Inhaled Oxygen Concentration - - Weight 95.3 kg (210 lb) 10/19/2015 10:24 AM CDT Height 177.8 cm (5' 10 ) 10/19/2015 10:24 AM CDT Body Mass Index 30.13 10/19/2015 10:24 AM CDT Functional Status Functional Status Response Date of Assess ment Is person deaf or have serious hearing difficult y? No 09/11/2015 Is person blind or have serious difficulty seein g? No 09/11/2015 Does person have serious dif ficulty walking/climbing stairs? No 09/11/2015 Does person have difficulty dressing/bathing? No 09/11/2015 Does person have difficulty doing errands alone? No 09/11/2015 Cognitive Status Response Date of Assessm ent Does person have difficulty concentrating/remembering/making decisions? No 09/11/2015 Plan of Treatment Not on file Advance Directives * Full Code (Latest Code Status on File) Date Activated Date Inactivated Comments 09/11/2015 6:43 PM 09/12/2015 5:37 PM * Full Code Date Activated Date Inactivated Comments 09/11/2015 12:59 PM 09/11/2015 6:43 PM Care Teams Tool Maker Apprentice Relationship Specialty Start Date End Date Antolin Mcintyre MD [address] [place] [address] PCP - General Family Medicine 09/11/15
--- OUTSIDE RECORDS SUMMARY | 2024-07-15 08:38 | XMS_ITS | Patient Health Summary ---
Author Organization [facility] Address [address] [place] [address] Care Team Providers Care X Ray Equipment Servicer Name Role Phone Antolin Mcintyre MD Primary Care Provider [phone] Note from [facility],non-owned Affiliates and Associated Physician Practices is amultiple site organization consisting of ambulatory clinics and hospital sitesin [place], [place], [place] and [place]. This disclosure is being madepursuant to the Care Everywhere program and may not contain all information available regarding this patient. Last updated 18.[facility] [employer] Allergies No known active allergies Medications * Be aware that medications may not be up to date on this document. Alwaysverify current medications with the patient. * omeprazole (PRILOSEC) 40 MG capsule Take 40 mg by mouth daily before breakfast * fluticasone-salmeterol (ADVAIR) 250-50 MCG/DOSE inhaler Inhale 1 Puff by mouth 2 times daily * albuterol HFA (PROVENTIL;VENTOLIN;PROAIR) 108 (90 BASE) MCG/ACT inhaler Inhale 2 Puffs by mouth every 6 hours as needed * montelukast (SINGULAIR) 10 MG tablet Take 10 mg by mouth at bedtime * fluticasone propionate (FLONASE) 50 MCG/ACT nasal spray [place] 2 Sprays into each nostril once daily * cetirizine (ZYRTEC ALLERGY) 10 MG gel capsule Take 10 mg by mouth once daily Active Problems Problem Noted Date Diagnosed Date [...] Mass Index 30.13 10/19/2015 10:24 AM CDT Procedures * CARDIAC RHYTHM STRIP ORDER(Performed 09/18/2015) * CARDIAC EKG ORDER(Performed 09/18/2015) * EVENT MONITOR(Performed 09/12/2015) Performed for Vertigo, Near syncope * NM MYOCARD PERF REST STRESS(Performed 09/12/2015) Performed for Vertigo, Near syncope * STRESS TEST NUCLEAR(Performed 09/12/2015) Performed for Vertigo, Near syncope * TSH REFLEX FREE T4(Performed 09/12/2015) Performed for Vertigo, Near syncope * CBC W AUTO DIFFERENTIAL(Performed 09/12/2015) Performed for Near syncope * BASIC METABOLIC PANEL (CALCIUM TOTAL)(Performed 09/12/2015) Performed for Near syncope * TROPONIN I(Performed 09/12/2015) * TROPONIN I(Performed 09/11/2015) * URINALYSIS REFLEX MICROSCOPIC REFLEX CULTURE(Performed 09/11/2015) * ECHOCARDIOGRAM 2D WITH DOPPLER(Performed 09/11/2015) Performed for Vertigo, Near syncope * TROPONIN I(Performed 09/11/2015) Performed for Near syncope * NM LUNG VENT PERF AEROSOL(Performed 09/11/2015) Performed for Near syncope * CT ANGIO BRAIN AND NECK(Performed 09/11/2015) Performed for Vertigo * CT HEAD WO CONTRAST(Performed 09/11/2015) Performed for Vertigo * XR CHEST 1VW PORTABLE(Performed 09/11/2015) Performed for Vertigo * PT PTT PANEL(Performed 09/11/2015) * NT-PRO BNP(Performed 09/11/2015) * TROPONIN I(Performed 09/11/2015) * COMPREHENSIVE METABOLIC PANEL(Performed 09/11/2015) * CBC W AUTO DIFFERENTIAL(Performed 09/11/2015) * EKG 12-LEAD(Performed 09/11/2015) Performed for Vertigo Results * CARDIAC RHYTHM STRIP ORDER (09/18/2015 9:33 PM CDT) Narrative 09/18/2015 9:33 PM CDT Ordered by an unspecified provider. Scanned Document CARDIAC SERVICES ORD ERABLES * CARDIAC EKG ORDER (09/18/2015 9:33 PM CDT) Narrative 09/18/2015 9:33 PM CDT Ordered by an unspecified provider. Scanned Document CARDIAC SERVICES ORD ERABLES * EVENT MONITOR (09/12/2015 12:00 PM CDT) 09/12/2015 12:0 0 PM CDT Narrative Transcriptions Tracie Garber MD - 10/16/2015 2:56 PM CDT [facility] 30-DAY EVENT RECORDER REPORT PATIENT: AINSLEY HEADLEY MR#: [id number] DATE SERVICE BEGAN: 09/12/2015 CSN: [id number] DATE SERVICE ENDED: AGE: 54 ADMIT DATE: 09/11/2015 :1960 REFERRING PHYSICIAN: PHOEBE FERRARI Patient underwent monitoring of rhythm using the event monitor. A totalof 26 transmissions were made. Predominant rhythm was sinus. Periods of sinus tachycardia noted. No ectopics noted. No nonsustainedor sustained arrhythmia noted. No advanced conduction abnormality noted. TRACIE GARBER MD ASN/MODL #: [id number] 30-DAY EVENT RECORDER REPORT - DP Tracie Garber MD CARDIAC SERVICES ORD ERABLES [facility] * NM MYOCARD PERFUSION SPECT STRESS AND REST (09/12/2015 11:04 AM CDT) Anatomical Region Laterality Modality Chest Nuclear Medicine 09/12/2015 11:0 9 AM CDT Narrative 09/12/2015 11:10 AM CDT NM MYOCARDIAL SPECT SCAN Indication: Cardiac arrhythmia, abnormal EKG The resting dose is 10mCi Myoview. The patient is reported to have exercised for 9minutes one seconds achieving 85percent of maximum predicted heart rate at the time of injection and 91percent at the end of stress. The stress dose [id number] Tc Myoview. A preliminary stress test report indicates no report currently available. No fixed or reversible perfusion defects are demonstrated. Left ventricular ejection fraction is 63%. There is normal appearing left ventricular wall motion and volume. Summary: Unremarkable exercise myocardial perfusion scan and motion study. Procedure Note Jose Mccloud MD - 09/12/2015 NM MYOCARDIAL SPECT SCAN Indication: Cardiac arrhythmia, abnormal EKG The resting dose is 10mCi Myoview. The patient is reported to have exercised for 9minutes one seconds achieving 85percent of maximum predicted heart rate at the time of injection and 91percent at the end of stress. The stress dose [id number] Tc Myoview. A preliminary stress test report indicates no report currently available. No fixed or reversible perfusion defects are demonstrated. Left ventricular ejection fraction is 63%. There is normal appearing left ventricular wall motion and volume. Summary: Unremarkable exercise myocardial perfusion scan and motion study. Tracie Garber MD [place] ORDERABLES * STRESS TEST NUCLEAR (09/12/2015 9:52 AM CDT) [facility] Stress Test Summary For full formatted report, please see the report link in the order. Acquisition Time: 2015-09-12 09:52:21 Total Exercise Time: 00:09:01 Test Indications: Medications: Protocol: SIMÓN Max HR: 153 BPM 91% of Pred: 168 BPM Max BP: 162/090 mmHG Max Work Load: 10.1 METS Reason for Termination: Reached Predetermined End Point Resting ECG: Normal Functional Capacity: Normal HR Response to Exercise: Normal Overall HR Response To Exercise BP Resoonse to Exercise: Resting Hypertension with Appropriate Response Chest Pain: No Chest Pain Arrhythmias: No Arrhythmias ST Changes: no significant st change Overall Impression: No ECG evidence of ischemia Findings to be correlated w/imaging report Diagnosis: Confirmed by MIKE HURTADO ([id number]) on 09/12/2015 10:32:45 AM Attending Physician: Referred By: Overread By: MIKE HURTADO [facility] 09/12/2015 9:52 AM CDT 09/12/2015 10:32 AM CDT Tracie Garber MD CARDIAC SERVICES ORD ERABLES [facility] * TSH REFLEX FREE T4 (09/12/2015 3:41 AM CDT) Pathologist [facility] TSH 2.38 0.358 - 3.740 ulU/mL 09/12/2015 4:27 AM CDT [facility] Blood BLOOD SPECIMEN / Unknown 09/12/2015 3:41 AM CDT 09/12/2015 3:56 AM CDT Earlene Huerta PA-C LAB - CHEMISTRY ORDE MARGO Performing Organization Address City/[facility]/ZIP Co de Phone Number [facility] [address] [phone] * TROPONIN I (09/12/2015 3:41 AM CDT) Only the most recent of4 resultswithin the time period is included. Pathologist [facility] Troponin I <0.015 0.000 - 0.049 ng/mL 09/12/2015 4:18 AM CDT [facility] Blood BLOOD SPECIMEN / Unknown 09/12/2015 3:41 AM CDT 09/12/2015 3:56 AM CDT Narrative [facility] - 09/12/2015 4:18 AM CDT Note: Diagnosis of myocardial infarction requires symptoms of ischemia or EKG changes of ischemia and Troponin I >99th of normal (0.05 ng/mL). Troponin should be drawn on initial assessment and 3-6 hours later as clinically indicated. Any condition resulting in myocardial cell damage can increase cardiac troponin levels. In addition to myocardial infarction, these include but are not limited to congestive heart failure (CHF), arrhythmia, myocarditis, and non-cardiac related causes such as pulmonary embolism, renal failure and sepsis. Phoebe Ferrari MD LAB - CHEMISTRY [place]ERT [place] [facility] Organization Address City/State/ZIP Co de Phone Number [facility] [address] [place] [address] * CBC W AUTO DIFFERENTIAL (09/12/2015 3:41 AM CDT) Only the most recent of2 resultswithin the time period is included. WBC 5.8 4.4 - 10.7 x10E9/L 09/12/2015 4:05 AM CDT [facility] WBC Corrected x10E9/L 09/12/2015 4:05 AM CDT [facility] RBC 4.67 3.80 - 5.40 x10E12/L 09/12/2015 4:05 AM CDT [facility] Hemoglobin 14.1 12.0 - 17.6 gm/dL 09/12/2015 4:05 AM CDT [facility] Hematocrit 41.3 35.2 - 51.7 % 09/12/2015 4:05 AM CDT [facility] MCV 88.4 80.7 - 98.3 fl 09/12/2015 4:05 AM CDT [facility] MCH 30.2 26.7 - 34.0 pg 09/12/2015 4:05 AM CDT [facility] MCHC 34.1 30.8 - 35.9 gm/dL 09/12/2015 4:05 AM CDT [facility] Platelet Count 242 153 - 416 x10E9/L 09/12/2015 4:05 AM CDT [facility] RDW-CV 12.6 12.1 - 14.9 % 09/12/2015 4:05 AM CDT [facility] MPV 10.9 9.4 - 12.9 fl 09/12/2015 4:05 AM CDT [facility] Neutrophils % 52.7 44.0 - 73.0 % 09/12/2015 4:05 AM CDT [facility] Lymphocytes % 33.4 20.0 - 43.0 % 09/12/2015 4:05 AM CDT [facility] Monocytes % 9.5 5.0 - 13.0 % 09/12/2015 4:05 AM CDT [facility] Eosinophils % 3.4 0.0 - 6.0 % 09/12/2015 4:05 AM CDT [facility] Basophils % 0.7 0.0 - 2.0 % 09/12/2015 4:05 AM CDT [facility] Immature Granulocytes 0.3 0 - 1 % 09/12/2015 4:05 AM CDT [facility] Neutrophil Absolute 3.05 2.01 - 7.14 x10E9/L 09/12/2015 4:05 AM CDT [facility] Lymphocytes Absolute 1.94 1.07 - 3.94 x10E9/L 09/12/2015 4:05 AM CDT [facility] Monocytes Absolute 0.55 0.26 - 1.07 x10E9/L 09/12/2015 4:05 AM CDT [facility] Eosinophils Absolute 0.20 0 - 0.47 x10E9/L 09/12/2015 4:05 AM CDT [facility] Basophils Absolute 0.04 0 - 0.08 x10E9/L 09/12/2015 4:05 AM CDT [facility] Immature Granulocytes Absolute 0.02 0.00 - 0.06 x10E9/L 09/12/2015 4:05 AM CDT [facility] nRBC Auto 0 /100 WBC 09/12/2015 4:05 AM CDT [facility] Blood BLOOD SPECIMEN / Unknown 09/12/2015 3:41 AM CDT 09/12/2015 3:56 AM CDT Phoebe Ferrari MD LAB - HEMATOLOGY ORD ERABLES [facility] [address] [place] [address] * BASIC METABOLIC PANEL (CALCIUM TOTAL) (09/12/2015 3:41 AM CDT) [facility] Glucose 95 74 - 106 mg/dL 09/12/2015 4:16 AM CDT [facility] Sodium 141 136 - 145 mmol/L 09/12/2015 4:16 AM CDT [facility] Potassium 4.2 3.5 - 5.1 mmol/L 09/12/2015 4:16 AM CDT [facility] Chloride 106 98 - 107 mmol/L 09/12/2015 4:16 AM CDT [facility] CO2 28 22 - 31 mmol/L 09/12/2015 4:16 AM CDT [facility] Calcium 9.0 8.5 - 10.1 mg/dL 09/12/2015 4:16 AM CDT [facility] Anion Gap 7 5 - 20 mmol/L 09/12/2015 4:16 AM CDT [facility] BUN 14 7 - 21 mg/dL 09/12/2015 4:16 AM CDT [facility] Creatinine 1.10 0.50 - 1.30 mg/dL 09/12/2015 4:16 AM CDT [facility] eGFR by MDRD >60 >60 mL/min/1.7 3m2 09/12/2015 4:16 AM CDT [facility] eGFR by MDRD >60 >60 mL/min/1.7 3m2 09/12/2015 4:16 AM CDT [facility] Blood BLOOD SPECIMEN / Unknown 09/12/2015 3:41 AM CDT 09/12/2015 3:56 AM CDT Phoebe Ferrari MD LAB - CHEMISTRY [place] [facility] Organization Address City/State/ZIP Co de Phone Number [facility] [address] [place] [address] * (ABNORMAL) URINALYSIS ROUTINE W/REFLEX TO CULTURE (09/11/2015 4:40 PM CDT) Color UA Yellow Straw, Yellow, Dark Yellow 09/11/2015 4:51 PM CDT [facility] Clarity UA Turbid 09/11/2015 4:51 PM CDT [facility] Specific [place] UA >1.030(H) 1.005 - 1.030 09/11/2015 4:51 PM CDT [facility] pH UA 6.0 5.0 - 8.0 pH 09/11/2015 4:51 PM CDT [facility] Protein UA Negative Negative 09/11/2015 4:51 PM CDT [facility] Blood UA Negative Negative 09/11/2015 4:51 PM CDT [facility] Leukocyte UA Negative Negative 09/11/2015 4:51 PM CDT [facility] Nitrite UA Negative Negative 09/11/2015 4:51 PM CDT [facility] Glucose UA Negative Negative 09/11/2015 4:51 PM CDT [facility] Ketone UA Negative Negative 09/11/2015 4:51 PM CDT [facility] Bilirubin UA Negative Negative 09/11/2015 4:51 PM CDT [facility] Urobilinogen UA 0.2 0.1 - 1.0 EU/dL 09/11/2015 4:51 PM CDT [facility] Reflex Status Culture not indicated 09/11/2015 4:51 PM CDT [facility] Urine URINE SPECIMEN OBTAINED BY CLEAN CATCH PROCEDURE / Unknown 09/11/2015 4:40 PM CDT 09/11/2015 4:44 PM CDT Phoebe Ferrari MD LAB - URINALYSIS ORD ERABLES Performing Organization Address City/State/[facility] Co de Phone Number [facility] [address] [place] [id number] * ECHOCARDIOGRAM 2D WITH DOPPLER (09/11/2015 3:01 PM CDT) 09/11/2015 3:01 PM CDT Narrative [facility] - 09/11/2015 4:[address] PM [address]T [address] [phone] Transthoracic Echocardiogram 2D, M-mode, Doppler, and Color Doppler Patient: AINSLEY HEADLEY MR number: [id number] Height: 70 in Weight: 210.1 lb BSA: 2.13 m Study date: 11-Sep-2015 : 1960 Age: 54 years Gender: Male Race: Diagnoses: R42. - Dizziness and giddiness, R55. - Syncope and collapse Reading Physician: Tracie Garber MD Referring Physician: Phoebe Ferrari MD VIBRATOR EQUIPMENT TESTER: Norman Dewitt [facility] Cardiology Group: [facility] Summary: - Clinical question: - Vertigo; Near Syncope; Chest Pressure - Procedure information: - Room 224 @ 15:01 - Left ventricle: - Systolic function was normal. Ejection fraction was estimated in the range of 55 % to 65 %. - There were no regional wall motion abnormalities. - Mitral valve: - There was mild regurgitation. - Tricuspid valve: - There was mild regurgitation. Indications: Vertigo; Near Syncope; Chest Pressure History: Prior history: Patient has no history of cardiovascular disease. Procedure: The study was performed in the [facility]. This was a routine study. Room 224 @ 15:01 The transthoracic approach was used. The study included complete 2D imaging, M-mode, complete spectral Doppler, and color Doppler. Systolic blood pressure was 133 mmHg. Diastolic blood pressure was 82 mmHg. Image quality was adequate. Left ventricle: Size was normal. Systolic function was normal. Ejection fraction was estimated in the range of 55 % to 65 %. There were no regional wall motion abnormalities. Aortic valve: demonstrated normal excursion. Aorta: The root exhibited normal size. Mitral valve: There was normal leaflet separation. Doppler: There was mild regurgitation. Left atrium: Size was normal. Right ventricle: The size was normal. Pulmonic valve: Doppler: There was no significant regurgitation. Tricuspid valve: There was normal leaflet separation. Doppler: There was mild regurgitation. Right atrium: Size was normal. Pericardium: There was no pericardial effusion. The pericardium was normal in appearance. System measurement tables 2D LVOT Diam: 2.3 cm LVEDV MOD A4C: 117 ml LVESV MOD A4C: 35.5 ml CW PV Vmax: 1 m/s AV Vmax: 1.6 m/s AV maxP.7 mmHg MV SV: 0 ml MV VTI: 31.4 cm MV Vmax: 1 m/s MV Vmean: 0.6 m/s MV maxP.1 mmHg MV meanP.9 mmHg PV maxP.3 mmHg RAP: 10 mmHg TR Vmax: 2.6 m/s TR maxP.9 mmHg MM LA Diam: 3.8 cm AV Cusp: 2 cm Ao Diam: 2.6 cm IVSd: 1.2 cm IVSs: 1.5 cm LVIDd: 4.2 cm LVIDs: 2.7 cm LVPWd: 1.2 cm LVPWs: 1.9 cm PW LVOT Vmax: 1.3 m/s DEBBIE Vmax, Pt: 3.6 cm2 E/e' Lateral Ratio: 6.7 E/e' Septal Ratio: 9.9 Lateral e': 0.1 m/s MV A Rojelio: 0.9 m/s MV Dec Motley: 5 m/s2 MV E Rojelio: 1 m/s MV E/A Ratio: 1.1 RVSP: 37.9 mmHg Sepatl E': 0.1 m/s Prepared and signed by Tracie Garber MD Signed 11-Sep-2015 16:44:14 Procedure Note Tracie Garber MD - 09/11/[address] [address] Transthoracic Echocardiogram 2D, M-mode, Doppler, and Color Doppler Patient: AINSLEY HEADLEY MR number: [id number] Height: 70 in Weight: 210.1 lb BSA: 2.13 m Study date: 11-Sep-2015 : 1960 Age: 54 years Gender: Male Race: Diagnoses: R42. - Dizziness and giddiness, R55. - Syncope and collapse Reading Physician: Tracie Garber MD Referring Physician: Phoebe Ferrari MD VIBRATOR EQUIPMENT TESTER: Norman Dewitt [facility] Cardiology Group: [facility] Summary: - Clinical question: - Vertigo; Near Syncope; Chest Pressure - Procedure information: - Room 224 @ 15:01 - Left ventricle: - Systolic function was normal. Ejection fraction was estimated in the range of 55 % to 65 %. - There were no regional wall motion abnormalities. - Mitral valve: - There was mild regurgitation. - Tricuspid valve: - There was mild regurgitation. Indications: Vertigo; Near Syncope; Chest Pressure History: Prior history: Patient has no history of cardiovascular disease. Procedure: The study was performed in the [facility]. This was a routine study. Room 224 @ 15:01 The transthoracic approach was used. The study included complete 2D imaging, M-mode, complete spectral Doppler, and color Doppler. Systolic blood pressure was 133 mmHg. Diastolic blood pressure was 82 mmHg. Image quality was adequate. Left ventricle: Size was normal. Systolic function was normal. Ejection fraction was estimated in the range of 55 % to 65 %. There were no regional wall motion abnormalities. Aortic valve: demonstrated normal excursion. Aorta: The root exhibited normal size. Mitral valve: There was normal leaflet separation. Doppler: There was mild regurgitation. Left atrium: Size was normal. Right ventricle: The size was normal. Pulmonic valve: Doppler: There was no significant regurgitation. Tricuspid valve: There was normal leaflet separation. Doppler: There was mild regurgitation. Right atrium: Size was normal. Pericardium: There was no pericardial effusion. The pericardium was normal in appearance. System measurement tables 2D LVOT Diam: 2.3 cm LVEDV MOD A4C: 117 ml LVESV MOD A4C: 35.5 ml CW PV Vmax: 1 m/s AV Vmax: 1.6 m/s AV maxP.7 mmHg MV SV: 0 ml MV VTI: 31.4 cm MV Vmax: 1 m/s MV Vmean: 0.6 m/s MV maxP.1 mmHg MV meanP.9 mmHg PV maxP.3 mmHg RAP: 10 mmHg TR Vmax: 2.6 m/s TR maxP.9 mmHg MM LA Diam: 3.8 cm AV Cusp: 2 cm Ao Diam: 2.6 cm IVSd: 1.2 cm IVSs: 1.5 cm LVIDd: 4.2 cm LVIDs: 2.7 cm LVPWd: 1.2 cm LVPWs: 1.9 cm PW LVOT Vmax: 1.3 m/s DEBBIE Vmax, Pt: 3.6 cm2 E/e' Lateral Ratio: 6.7 E/e' Septal Ratio: 9.9 Lateral e': 0.1 m/s MV A Rojelio: 0.9 m/s MV Dec Motley: 5 m/s2 MV E Rojelio: 1 m/s MV E/A Ratio: 1.1 RVSP: 37.9 mmHg Sepatl E': 0.1 m/s Prepared and signed by Tracie Garber MD Signed 11-Sep-2015 16:44:14 Tracie Garber MD ECHO ORDERABLES [facility] * NM LUNG VENT PERF AEROSOL(VQ SCAN) (09/11/2015 12:57 PM CDT) Anatomical Region Laterality Modality Lung, Chest Nuclear Medicine 09/11/2015 1:00 PM CDT Impressions 09/11/2015 1:02 PM CDT Low probability for pulmonary embolus. Narrative 09/11/2015 1:02 PM CDT Ventilation and perfusion scan Clinical Indication: Shortness of breath Radiopharmaceutical: Tc 99m DTPA 35.0 mCi inhaled Technetium 99m MAA 5.0 mCi IV Findings: There is a small matched defect within the left lower lobe without radiographic correlate. There are no mismatched ventilation/perfusion defects. Procedure Note Christine Cotton MD - 09/11/2015 Ventilation and perfusion scan Clinical Indication: Shortness of breath Radiopharmaceutical: Tc 99m DTPA 35.0 mCi inhaled Technetium 99m MAA 5.0 mCi IV Findings: There is a small matched defect within the left lower lobe without radiographic correlate. There are no mismatched ventilation/perfusion defects. IMPRESSION Low probability for pulmonary embolus. Phoebe Ferrari MD NM ORDERABLES * CT ANGIO HEAD AND NECK (09/11/2015 11:00 AM CDT) Anatomical Region Laterality Modality Head Computed Tomogra phy 09/11/2015 11:1 1 AM CDT Narrative 09/11/2015 11:14 AM CDT Examination: CT angiography, cervical and intracranial. Indication for examination: Cerebral infarction, TIA. Dizziness. CT angiography of the cervical and cranial arterial circulation is performed with thin section helical technique with additional multiplanar and three-dimensional reconstructions performed at a work station. Examination was performed with 80 cc Omnipaque 350 contrast. Evaluation of arterial stenosis is performed using NASCET criteria. Examination of the cervical arterial circulation reveals that the right and left common, internal and external carotid artery are patent. There is mild plaque at the bifurcation bilaterally. No stenosis or ulcer is identified. Right and left vertebral artery are patent. Right vertebral is slightly larger than the left. Examination of the intracranial arterial circulation reveals that the distal right and left internal carotid artery are patent as are the right and left middle and anterior cerebral. Basilar is patent as are its major branches. No acute central intracranial arterial occlusion or embolic filling defect is observed. Conclusion: Unremarkable examination as described in detail above. Procedure Note Jose Mccloud MD - 09/11/2015 Examination: CT angiography, cervical and intracranial. Indication for examination: Cerebral infarction, TIA. Dizziness. CT angiography of the cervical and cranial arterial circulation is performed with thin section helical technique with additional multiplanar and three-dimensional reconstructions performed at a work station. Examination was performed with 80 cc Omnipaque 350 contrast. Evaluation of arterial stenosis is performed using NASCET criteria. Examination of the cervical arterial circulation reveals that the right and left common, internal and external carotid artery are patent. There is mild plaque at the bifurcation bilaterally. No stenosis or ulcer is identified. Right and left vertebral artery are patent. Right vertebral is slightly larger than the left. Examination of the intracranial arterial circulation reveals that the distal right and left internal carotid artery are patent as are the right and left middle and anterior cerebral. Basilar is patent as are its major branches. No acute central intracranial arterial occlusion or embolic filling defect is observed. Conclusion: Unremarkable examination as described in detail above. Phoebe Ferrari MD CT ORDERABLES * CT HEAD NON CONTRAST (09/11/2015 10:58 AM CDT) Anatomical Region Laterality Modality Head Computed Tomogra phy 09/11/2015 11:0 0 AM CDT Impressions 09/11/2015 11:01 AM CDT Normal unenhanced CT brain. Narrative 09/11/2015 11:[address] Brain Noncontrast Indication: Acute onset of dizziness Comparison: None Technique: 5 mm axial images were obtained from the foramen magnum to the vertex without administration of contrast. Findings: The ventricles and sulci are normal in size for patient's given age. There is no intracranial hemorrhage, mass, or mass-effect. No abnormal extra-axial fluid collections are seen. There is no cortical infarction. The visualized paranasal sinuses and mastoid air cells appear clear. Procedure Note Hailey Oreilly MD - 09/11/2015 CT Brain Noncontrast Indication: Acute onset of dizziness Comparison: None Technique: 5 mm axial images were obtained from the foramen magnum to the vertex without administration of contrast. Findings: The ventricles and sulci are normal in size for patient's given age. There is no intracranial hemorrhage, mass, or mass-effect. No abnormal extra-axial fluid collections are seen. There is no cortical infarction. The visualized paranasal sinuses and mastoid air cells appear clear. IMPRESSION Normal unenhanced CT brain. Phoebe Ferrari MD CT ORDERABLES * XR CHEST 1VW PORTABLE (09/11/2015 10:28 AM CDT) Anatomical Region Laterality Modality Chest Radiographic Shu ging 09/11/2015 10:3 7 AM CDT Narrative 09/11/2015 10:38 AM CDT Chest single view portable Indication for examination: Shortness of breath. Dizziness. Single AP view of the chest shows no active or acute lung infiltrate. There is no pleural effusion or pneumothorax. Heart size is within normal limits. Pulmonary vascularity is not congested. Conclusion: No active or acute disease identified. Procedure Note Jose Mccloud MD - 09/11/2015 Chest single view portable Indication for examination: Shortness of breath. Dizziness. Single AP view of the chest shows no active or acute lung infiltrate. There is no pleural effusion or pneumothorax. Heart size is within normal limits. Pulmonary vascularity is not congested. Conclusion: No active or acute disease identified. Phoebe Ferrari MD DIAGNOSTIC IMAGING O RDERABLES * NT-PRO BNP (09/11/2015 10:10 AM CDT) NT-proBNP 61.0 <300.0 pg/mL 09/11/2015 10:37 AM CDT [facility] Blood BLOOD SPECIMEN / Unknown 09/11/2015 10:10 AM CDT 09/11/2015 10:13 AM CDT Narrative [facility] - 09/11/2015 10:37 AM CDT NT-proBNP Patient Age Acute HF Unlikely Acute HF Likely <50 years <300 pg/mL >450 pg/mL 50-75 years <300 pg/mL >900 pg/mL >75 years <300 pg/mL >1800 pg/mL Reference: JOSE ARMANDO Ronquillo et al. ICON Study. Heart Journal (2006) 27, 330- [phone] Both BNP and NT-proBNP derive from the precursor molecule called proBNP which is secreted from the ventricles in response to ventricle volume expansion and/or pressure overload. The secreted proBNP is subsequently cleaved by enzymes to form BNP, the active hormone and NT-proBNP an inactive metabolite. NT-proBNP has a longer half-life of 1.5-2.0 hours verses BNP with a half-life of 20 min for BNP. Both are useful biomarkers of ventricular distension due to increased intracardiac pressure. Both BNP and NT-proBNP increase with age and renal insufficiency. Increased concentrations of NT-proBNP have also been observed in the setting of acute myocardial infarction, right ventricular failure, valvular heart disease, and atrial fibrillation. Phoebe Ferrari MD LAB - CHEMISTRY ORDE RABLES Performing Organization Address [facility] de Phone Number [facility] [address] [place] [address] * PT PTT PANEL (09/11/2015 10:10 AM CDT) PT 9.8 9.5 - 11.6 sec 09/11/2015 10:33 AM CDT [facility] INR 0.9 0.9 - 1.1 09/11/2015 10:33 AM CDT [facility] PTT 21.7 21.0 - 32.0 sec 09/11/2015 10:33 AM CDT [facility] Blood BLOOD SPECIMEN / Unknown 09/11/2015 10:10 AM CDT 09/11/2015 10:13 AM CDT Narrative [facility] - 09/11/2015 10:33 AM CDT Conventional Warfarin Anticoagulant Therapy: INR Reference Range: 2.0-3.0 Intensive Warfarin Anticoagulant Therapy: INR Reference Range: 2.5-3.5 Heparin Therapeutic Range for PTT: 47.7 - 68.6 seconds. Phoebe Ferrari MD LAB - COAGULATION OR DERABLES Performing Organization Address [facility] de Phone Number [facility] [address] [place] [address] * COMPREHENSIVE METABOLIC PANEL (09/11/2015 10:10 AM CDT) Glucose 100 74 - 106 mg/dL 09/11/2015 10:33 AM CDT [facility] Sodium 142 136 - 145 mmol/L 09/11/2015 10:33 AM CDT [facility] Potassium 3.7 3.5 - 5.1 mmol/L 09/11/2015 10:33 AM CDT [facility] Chloride 107 98 - 107 mmol/L 09/11/2015 10:33 AM CDT [facility] CO2 26 22 - 31 mmol/L 09/11/2015 10:33 AM CDT [facility] Calcium 9.2 8.5 - 10.1 mg/dL 09/11/2015 10:33 AM CDT [facility] Anion Gap 9 5 - 20 mmol/L 09/11/2015 10:33 AM CDT [facility] BUN 16 7 - 21 mg/dL 09/11/2015 10:33 AM CDT [facility] Creatinine 1.00 0.50 - 1.30 mg/dL 09/11/2015 10:33 AM CDT [facility] Alkaline Phosphatase 80 38 - 126 U/L 09/11/2015 10:33 AM CDT [facility] ALT 41 12 - 78 U/L 09/11/2015 10:33 AM CDT [facility] AST 23 5 - 40 U/L 09/11/2015 10:33 AM CDT [facility] Protein Total 7.8 6.4 - 8.2 gm/dL 09/11/2015 10:33 AM CDT [facility] Albumin 4.0 3.4 - 5.0 gm/dL 09/11/2015 10:33 AM CDT [facility] Bilirubin Total 0.4 0.2 - 1.0 mg/dL 09/11/2015 10:33 AM CDT [facility] eGFR by MDRD >60 >60 mL/min/1.7 3m2 09/11/2015 10:33 AM CDT [facility] eGFR by MDRD >60 >60 mL/min/1.7 3m2 09/11/2015 10:33 AM CDT [facility] Blood BLOOD SPECIMEN / Unknown 09/11/2015 10:10 AM CDT 09/11/2015 10:13 AM CDT Phoebe Ferrari MD LAB - CHEMISTRY BERT ARAG[place] [facility] Organization Address City/State/ZIP Co de Phone Number [facility] [address] [place] [address] * EKG 12-LEAD (09/11/2015 9:53 AM CDT) Ventricular Rate 93 BPM [facility] Atrial Rate 93 BPM [facility] P-R Interval 160 ms [facility] QRS Duration ms 88 ms [facility] Q-T Interval ms 342 ms [facility] QTC Calculation (Bezet) 425 ms [facility] Calculated P [place] 57 degrees [facility] Calculated R [place] 48 degrees [facility] Calculated T [place] 46 degrees [facility] Interpretation EKG Normal sinus rhythm Normal ECG No previous ECGs available Confirmed by KIM MAYEN MD ([id number]) on 09/11/2015 1:21:26 PM [facility] 09/11/2015 9:53 AM CDT 09/11/2015 1:21 PM CDT Phoebe Ferrari MD ECG ORDERABLES [facility] Care Teams X Ray Equipment Servicer Relationship Specialty Start Date End Date Antolin Mcintyre MD [address] [place] [address] PCP - General Family Medicine 09/11/15
--- OUTSIDE RECORDS SUMMARY | 2024-07-15 08:38 | XMS_ITS | Clinical Summary ---
Author Organization [facility] Address [facility] [place] [address] Care Team Providers Care Wheel And Axle Inspector Name Role Phone Unavailable Primary Care Provider Unavailabl e Social History Tobacco Use Types Packs/Day Years Used Date Smoking Tobacco: Never Assessed Sex and Gender Information Value Date Recorded Sex Assigned at Not on file Legal Sex Male 7:40 PM CDT Gender Identity Not on file Sexual Orientation Not on file Plan of Treatment Health Maintenance Due Date Last Done Comments Colorectal Cancer Screening Colonoscopy (10 Years) 1962 Annual Physical 1965 Hepatitis C 1980 DTaP, Tdap and Td Vaccines ( 1 - Tdap) 1981 Zoster Vaccines (1 of 2) 2012 COVID-19 Vaccine (2023-2 5 season) 2024 Influenza Adult (#1) 2024 RSV Immunization or 60+ Years (1 - 1-dose 75+ series) 2037 Meningococcal B Vaccine Aged Out No l onger eligible based on patient's age to complete this topic Meningococcal Vaccine Aged Out No kylie josie eligible based on patient's age to complete this topic Pneumococcal Vaccine: Pediat rics (0 to 5 Years) and At-Risk Patients (6 to 64 Years) Aged Out No longer eligible b ased on patient's age to complete this topic RSV Immunizations Under 20 Months Aged Out No longer eligible based on patient's age to complete this topic
--- OUTSIDE RECORDS SUMMARY | 2024-07-15 08:38 | XMS_ITS | Clinical Summary ---
Author Organization [facility] Address [address] [place] [address] Care Team Providers Care Seo Intern Name Role Phone Antolin Mcintyre MD Primary Care Provider [phone] Source Comments [facility] [employer],non-owned Affiliates and Associated Physician Practices is amultiple site organization consisting of ambulatory clinics and hospital sitesin [place], [place], [place] and [place]. This disclosure is being madepursuant to the Care Everywhere program and may not contain all information available regarding this patient. Last updated 18.[facility] [employer] Allergies No known active allergies Medications * [...] fluticasone propionate (FLONASE) 50 MCG/ACT nasal spray [place] 2 Sprays into each nostril once daily [...] Mass Index 30.13 10/19/2015 10:24 AM CDT Plan of Treatment Health Maintenance Due Date Last Done Comments COLOGUARD (AGES 45-75) - COL ON CA SCREENING 1962 COLON MONITORING 1962 COLONOSCOPY - COLON CA SCREENING 1962 CT COLONOGRAPHY - COLON CA SCREENING 1962 Colorectal Cancer Screening 1962 FIT - COLON CA SCREENING 1962 FLEX SIG - COLON CA SCREENING 1962 LIPID TESTING 1962 HIV SCREENING 1977 HEPATITIS C SCREENING 10/23/1980 DTAP/TDAP/TD VACCINES (1 - Tdap) 1981 PNEUMOCOCCAL VACCINE 50+ (1 of 1 - PCV) 2012 ZOSTER VACCINE (1 of 2) 2012 COVID-19 VACCINE ( - 2023-2 5 season) 2024 INFLUENZA VACCINE (#1) 2024 DEPRESSION SCREENING 06/01/2024 Respiratory Syncytial Virus (RSV) Vaccine Pt: or over 60 yrs (1 - 1-dose 75+ series) 2037 HEPATITIS B VACCINE Aged Out No longe r eligible based on patient's age to complete this topic HIB VACCINE Aged Out No longer eligi ble based on patient's age to complete this topic HPV VACCINE Aged Out No longer eligi ble based on patient's age to complete this topic MENINGOCOCCAL (Group B) VACCINE Aged Out No longer eligible based on patient's age to complete this topic MENINGOCOCCAL VACCINE Aged Out No kylie josie eligible based on patient's age to complete this topic PNEUMOCOCCAL VACCINE Aged Out No long er eligible based on patient's age to complete this topic Advance Directives * Full Code (Latest Code Status on File) Date Activated Date Inactivated Comments 09/11/2015 6:43 PM 09/12/2015 5:37 PM * Full Code Date Activated Date Inactivated Comments 09/11/2015 12:59 PM 09/11/2015 6:43 PM Care Teams Seo Intern Relationship Specialty Start Date End Date Antolin Mcintyre MD [address] [place] [address] PCP - General Family Medicine 09/11/15
== END 2024-07-15 08:31 | disposition home or self-care (01) ==
PROVIDERS: PCP Family Medicine; Visit Provider Physician Assistant
DX: R20.0 Anesthesia of skin (principal); R90.82 White matter disease, unspecified
CPT/HCPCS: 70553; A9577

== ENCOUNTER 2025-05-11 05:49 | Emergency (ER) | payer OTHER, SELFPAY ==
--- NOTE | ~2025-05-11 | CT_ITS ---
CTA abdomen pelvis Clinical History: abdominal pain Technique: Helical images lung bases to pelvic outlet 100 mL Omnipaque 350 Coronal, sagittal reformats. Multiplanar MIPS CT images acquired with automatic exposure control for dose reduction DLP: 801 mGy-cm Comparison: None Findings: CTA Findings: Abdominal aorta: No aneurysm or dissection. Atherosclerotic disease. Common iliac arteries: Patent. External iliac arteries: Patent. Hypogastric arteries: Patent. CFAs: Patent. Proximal visualized SFAs and profundas: Patent. Celiac: Patent. Replaced left hepatic left gastric. SMA: Patent. ROLA: Patent. Renal arteries: Patent. Non-CTA findings: Lung bases: Clear. Visualized heart and pericardium: Unremarkable. Liver: Steatosis. Gallbladder: Unremarkable. Spleen: Unremarkable. Pancreas: Unremarkable. Adrenal glands: Unremarkable. Kidneys: Right kidney- No renal stones. No hydronephrosis. Left kidney- No renal stones. No hydronephrosis. Distal esophagus/stomach: Unremarkable. Small bowel loops: Normal caliber and wall thickness. Colon: Diverticula. Normal caliber and wall thickness. Normal RLQ appendix. Nodes: No enlarged nodes. Peritoneum: No ascites. No free air. Urinary bladder: Unremarkable. Prostate: Unremarkable. Bones: No acute bony abnormality. L4 spondylolysis, with spondylolisthesis. Soft tissues: Inguinal hernias with fat. IMPRESSION: 1. No acute abnormality. Reviewed, dictated and finalized at location R. [employer] TECHNICIAN IMPRESSION: 1. No acute abnormality.
--- OUTSIDE RECORDS SUMMARY | 2025-05-11 05:51 | XMS_ITS | Clinical Summary ---
Author Organization [facility] [employer] Address [address] [place] [address] Care Team Providers Care General Lot Attendant Name Role Phone Antolin Mcintyre MD Primary Care Provider [phone] Source Comments [facility] [employer],non-owned Affiliates and Associated Physician Practices is amultiple site organization consisting of ambulatory clinics and hospital sitesin [place], [place], [place] and [place]. This disclosure is being madepursuant to the Care Everywhere program and may not contain all information available regarding this patient. Last updated 18.[facility] [employer] Allergies No known active allergies Medications * Be aware that medications may not be up to date on this document. Alwaysverify current medications with the patient. omeprazole (PRILOSEC) 40 MG capsule Take 40 mg by mouth daily before breakfast Active fluticasone-jun meterol (ADVAIR) 250-50 MCG/DOSE inhaler Inhale 1 Puff by mouth 2 times daily Active albuterol HFA (PROVENTIL;VENT MERT;PROAIR) 108 (90 BASE) MCG/ACT inhaler Inhale 2 Puffs by mouth every 6 hours as needed Active montelukast (SINGULAIR) 10 MG tablet Take 10 mg by mouth at bedtime Active fluticasone propionate (FLONASE) 50 MCG/ACT nasal spray [place] 2 Sprays into each nostril once daily [...] at Not on file Legal Sex Male 9:42 AM CDT Gender Identity Not on file Sexual [...] 10:24 AM CDT Height 177.8 cm (5' 10) 10/19/2015 10:24 AM CDT Body Mass Index [...] 2012 ZOSTER VACCINE (1 of 2) 2012 DEPRESSION SCREENING 06/01/2024 COVID-19 VACCINE (1 - 2024-2 6 season) 2025 INFLUENZA VACCINE (#1) 2025 Respiratory Syncytial Virus (RSV) Vaccine Pt: or [...] to complete this topic MENINGOCOCCAL (Group B) VACC INE SHARED DECISION-MAKING Aged Out No longer eligibl e based on patient's age to complete this topic MENINGOCOCCAL GROUPS A/C/Y/W VACCINE Aged Out No longer eligible b ased on patient's age to complete this topic Insurance SELF PAY NO INSURANCE Member Subscriber Plan / Payer (Ef fective for All Dates) Name:Ainsley Headley Member ID:Not on file Relation to Subscriber:Not on file Name:AINSLEY HEADLEY Subscriber ID:Not on file Address: [address] [place] [id number] Payer ID:Not on file Group ID:Not on file Type:Self Pay Address: [place], [place] SELF PAY NO INSURANCE Member Subscriber Plan / Payer (Ef fective for All Dates) Name:Ainsley Headley Member ID:Not on file Relation to Subscriber:Not on file Name:AINSLEY HEADLEY Subscriber ID:Not on file Address: [address] [place] [phone] Payer ID:Not on file Group ID:Not on file Type:Self Pay Address: [place], [place] SELF PAY NO INSURANCE Member Subscriber Plan / Payer (Ef fective for All Dates) Name:Ainsley Headley Member ID:Not on file Relation to Subscriber:Not on file Name:AINSLEY HEADLEY Subscriber ID:Not on file Address: [address] [place] [phone] Payer ID:Not on file Group ID:Not on file Type:Self Pay Address: [place], [place] Advance Directives * Full Code (Latest Code Status on File) Date Activated Date Inactivated Comments 09/11/2015 6:43 PM 09/12/2015 5:37 PM * Full Code Date Activated Date Inactivated Comments 09/11/2015 12:59 PM 09/11/2015 6:43 PM Care Teams General Lot Attendant Relationship Specialty Start Date End Date Antolin Mcintyre MD [address] [place] [address] PCP - General Family Medicine 09/11/15
--- OUTSIDE RECORDS SUMMARY | 2025-05-11 05:51 | XMS_ITS | Clinical Summary ---
Author Organization [facility] Address [facility] [place] [address] Care Team Providers Care Surgical Nurse Name Role Phone Unavailable Primary Care Provider [...] Td Vaccines ( 1 - Tdap) 1981 Pneumococcal Vaccine: 50+ Ye ars (1 of 1 - PCV) 2012 Zoster Vaccines (1 of 2) 2012 COVID-19 Vaccine (1 - 2024-2 6 season) 2025 Influenza Adult (#1) 2025 RSV Immunization or 60+ Years (1 - 1-dose 75+ series) 2037 Hepatitis A Vaccines Aged Out No long er eligible based on patient's age to complete this topic Meningococcal B Vaccine Aged Out No l onger eligible based on patient's age to complete this topic Meningococcal Vaccine Aged Out No kylie josie eligible based on patient's age to complete this topic RSV Immunizations Under 20 Months Aged Out No longer eligible based on patient's age to complete this topic
[2025-05-11 05:56] VITALS: BP 172/92; PULSE 99; RESP 18; TEMP 36.4; O2SAT 100
[2025-05-11 06:00] VITALS: BP 179/92; PULSE 102; RESP 12; TEMP 36.4; O2SAT 99
[2025-05-11] MEDS: SODIUM CHLORIDE 0.9% IV 1,000 ML 150 ML IV CONT (06:10)
[2025-05-11] MEDS: MORPHINE SULFATE (*CRX) 4 MG/ML INJ IV PUSH (06:10)
[2025-05-11 06:11] LABS: Hematocrit 45.1 % (42.0-52.0); Hemoglobin 15.3 g/dL (14.0-18.0); Immature Granulocyte Percent A 0.4 % (0-0.5); Lymphocytes Absolute Auto 1.49 K/mm3 (0.9-3.2); Mean Corpuscular HGB Conc 33.9 g/dl (32-36); Mean Corpuscular Hemoglobin 33.6 pg (26-34); Mean Corpuscular Volume 99.1 fl (80-100); Nucleated Red Blood Cells Absolute Auto 0.000 K/mm3 (0.0-0.012); Nucleated Red Blood Cells Perc 0.0 % (0.0-0.2); Platelet Count Result 236 k/mm3 (150-375); Red Blood Count 4.55 M/mm3 (4.6-6.20); White Blood Count 4.9 K/mm3 (4.5-10.0)
--- NOTE | 2025-05-11 06:14 | ED.ABDPAIN ---
HPI - Abdominal Pain General Chief Complaint: Abdominal Pain <Guido Richardson DO - Last Filed: 05/11/25 06:47> Stated Complaint: R lower abd pain <Guido Richardson DO - Last Filed: 05/11/25 06:47> Time Seen by Provider: 05/11/25 05:58 <Guido Richardson DO - Last Filed: 05/11/25 06:47> Source: patient <Guido Richardson DO - Last Filed: 05/11/25 06:47> Mode of arrival: ambulatory <Guido Richardson DO - Last Filed: 05/11/25 06:47> Limitations: no limitations <Guido Richardson DO - Last Filed: 05/11/25 06:47> History of Present Illness HPI narrative: Patient is a 64-year-old male presents to the emergency department complaining of abdominal pain. Patient notes he noticed a slight twinges of discomfort in his right lower quadrant over the week and did think much of it but then around Thursday it started to become a constant dull pain that became very sharp and stabbing with certain movements such is bending towards his right to with his but. Denies any history of this type of pain in the past. Admits to diarrhea with about 3 episodes daily over the past few days. Admits to history of a hernia repair in both his right groin and ventral. Denies any vomiting but admits to nausea occasionally. Denies any history of kidney stones. Admits to chronic urgency which has not changed and denies any dysuria or urinary frequency. Denies any known fevers. Denies any recent injuries. Denies any testicular pain or swelling. <Guido Richardson DO - Last Filed: 05/11/25 06:47> Related Data Home Medications: Home Medications ?Medication ?Instructions ?Recorded ?Confirmed ?Last Taken ?Type naproxen sodium 220 mg tablet 220 mg PO DAILY 05/02/19 12/26/24 07/30/23 History (Aleve) aspirin 81 mg tablet,delayed 81 mg PO DAILY 06/11/21 12/26/24 07/30/23 History release (Chelsea Low Dose Aspirin) cetirizine 10 mg tablet (Zyrtec) 10 mg PO DAILY 07/07/23 12/26/24 07/30/23 History <Guido Richardson DO - Last Filed: 05/11/25 06:47> Allergies/Adverse Reactions: Allergies Allergy/AdvReac Type Severity Reaction Status Date / Time No Known Allergies Allergy Verified 05/11/25 06:03 <Guido Richardson DO - Last Filed: 05/11/25 06:47> Review of Systems Review of Systems: A 10 system review of systems was completed on the patient and is negative except for what is stated in the HPI. Nursing and ancillary documentation was reviewed. <Guido Richardson DO - Last Filed: 05/11/25 06:47> PMFSH Past Medical History Medical History: Medical History HTN (hypertension) Fonseca's esophagus without dysplasia Chronic GERD Uncomplicated asthma Mixed hyperlipidemia IFG (impaired fasting glucose) <Guido Richardson DO - Last Filed: 05/11/25 06:47> Family History Family History: Family History Mother Hypertension Father Family history of malignant neoplasm of esophagus Other Family history of arthritis Malignant neoplasm of prostate <DO Art Valera Last Filed: 05/11/25 06:47> Social History Social History: Social History Smoking packs per day: 0 Smoking cigarettes per day: 0.0 Years smoked: 30 Smoking pack-years: 0.00 Smoking status: Former smoker Tobacco type: cigarettes and cigars Second hand tobacco smoke exposure: No Smoking end date: 06/01/13 Additional smoking assessment comments: currently smokes cigars,stopped smoking cigarrettes 2011 Alcohol intake: current Drinks per week: 6 Alcohol use details: beer- social Substance use: never Substance use type: does not use Living arrangements: with family Occupation/Education: occupation Gender identity (if verbalized by the patient): Male Sexual Orientation (if Verbalized by the Patient): Straight or Heterosexual Spiritual care concerns: No <DO Art Valera Last Filed: 05/11/25 06:47> Exam Narrative: CONST: No acute distress. Well nourished. HENMT: Head is normocephalic and atraumatic. Moist mucous membranes. No posterior oropharynx erythema. EYES: No scleral icterus. No conjunctival injection or pallor. PERRL. NECK: No meningeal signs. RESP: Able to speak in full sentences. Normal respiratory effort. CTAB. CARDIO: Regular rate. Regular rhythm. 2+ DP and radial pulses bilaterally. GI: Nondistended. Soft. Mild tenderness palpation in the right lower quadrant. No rebound or guarding or rigidity. : No CVA tenderness to palpation. No testicular tenderness to palpation or swelling bilaterally. No palpable hernias. SKIN: No rashes or lesions noted on exposed skin. NEURO: Oriented x3. Moves all extremities. EXTREM/MSK/BACK: No pedal edema. PSYCH: Normal affect. <Guido Richardson DO - Last Filed: 05/11/25 06:47> Course Course Emergency Course: 0734: Reviewed patient's labs and imaging results. I have discussed these results with the patient his verbalized understanding. He is appropriate for discharge home. Will treat his pain conservatively with anti-inflammatories and rest. Pain is likely musculoskeletal as there is no infectious or surgical etiology on evaluation. <Shade James MD - Last Filed: 05/11/25 07:41> Vital Signs Vital signs: Vital Signs Temperature 97.5 F L 05/11/25 05:56 Pulse Rate 99 05/11/25 05:56 Respiratory Rate 18 05/11/25 05:56 Blood Pressure 172/92 H 05/11/25 05:56 Pulse Oximetry 100 05/11/25 05:56 Oxygen Delivery Room Air 05/11/25 05:56 Temperature 97.5 F L 05/11/25 06:00 Pulse Rate 86 05/11/25 07:31 Respiratory Rate 12 05/11/25 07:31 Blood Pressure 164/89 H 05/11/25 07:31 Pulse Oximetry 95 05/11/25 07:31 Oxygen Delivery Room Air 05/11/25 05:56 <Guido Richardson DO - Last Filed: 05/11/25 06:47> Vital Signs Temperature 97.5 F L 05/11/25 05:56 Pulse Rate 99 05/11/25 05:56 Respiratory Rate 18 05/11/25 05:56 Blood Pressure 172/92 H 05/11/25 05:56 Pulse Oximetry 100 05/11/25 05:56 Oxygen Delivery Room Air 05/11/25 05:56 Temperature 97.5 F L 05/11/25 06:00 Pulse Rate 86 05/11/25 07:31 Respiratory Rate 12 05/11/25 07:31 Blood Pressure 164/89 H 05/11/25 07:31 Pulse Oximetry 95 05/11/25 07:31 Oxygen Delivery Room Air 05/11/25 05:56 <Shade James MD - Last Filed: 05/11/25 07:41> [facility] Narrative Medical decision making narrative: Patient presents with the above complaint. Initial vitals are remarkable for no significant abnormalities. Physical examination as noted above. Plan discussed: laboratory analysis, EKG, imaging. Patient ordered IVF, analgesia, antiemetic, continuous cardiac monitoring, continuous pulse oximetry. 07:00 - Patient signed out to oncoming physician Dr. James at shift change. <Guido Richardson DO - Last Filed: 05/11/25 06:47> Differential Diagnosis Differential Diagnosis: Appendicitis, ureterolithiasis, hernia, UTI, colitis, enteritis, AAA, pancreatitis, hepatobiliary pathology, mesenteric ischemia, constipation, diverticulitis. <Guido Richardson DO - Last Filed: 05/11/25 06:47> Lab Data [facility] Lab Attestation statement: I personally reviewed the patient's lab results. <Guido Richardson DO - Last Filed: 05/11/25 06:47> Lab results narrative: CBC reveals no significant abnormalities. Coags are within normal limits. Lactic acid is 1.6. CMP reveals a chloride of 108, glucose of 112. Lipase is 291. CRP is 1.4. Magnesium is 2.0. Urinalysis has a cloudy appearance, trace ketones. <Guido Richardson DO - Last Filed: 05/11/25 06:47> Result diagrams: 05/11/25 06:04 05/11/25 06:04 <Guido Richardson DO - Last Filed: 05/11/25 06:47> Labs: Lab Results 05/11/25 05/11/25 Range/Units 06:04 06:07 WBC 4.9 (4.5-10.0) K/mm3 RBC 4.55 L (4.6-6.20) M/mm3 Hgb 15.3 (14.0-18.0) g/dL Hct 45.1 (42.0-52.0) % MCV 99.1 (80-100) fl MCH 33.6 (26-34) pg MCHC 33.9 (32-36) g/dl RDW 13.7 (11.5-14.5) % Plt Count 236 (150-375) k/mm3 MPV 10.0 (7.4-10.4) fl Immature Gran % (Auto) 0.4 (0-0.5) % Neut % (Auto) 51.6 (45.5-73.1) % Lymph % (Auto) 30.2 (18.3-44.2) % Scurry % (Auto) 14.2 H (2.6-8.5) % Eos % (Auto) 2.8 (0-4.4) % Baso % (Auto) 0.8 (0.2-1.2) % Lymph # (Auto) 1.49 (0.9-3.2) K/mm3 Scurry # (Auto) 0.7 H (0.1-0.6) K/mm3 Eos # (Auto) 0.1 (0-0.3) K/mm3 Baso # (Auto) 0.0 (0.0-0.1) K/mm3 Abs Immat Gran (auto) 0.02 (0.00-0.031) K/mm3 Absolute Neuts (auto) 2.6 (1.3-6.7) K/mm3 Absolute Nucleated RBC 0.000 (0.0-0.012) K/mm3 Nucleated RBC % 0.0 (0.0-0.2) % PT 12.7 (11.1-14.7) Seconds INR 1.0 APTT 26.4 (22.3-36.8) Seconds Sodium 141 (137-145) mmol/L Potassium 3.9 (3.4-5.0) mmol/L Chloride 108 H (98-107) mmol/L Carbon Dioxide 23 (22-30) mmol/L Anion Gap 10 (4-12) mmol/L BUN 16 (9-20) mg/dL Creatinine 0.99 (0.7-1.3) mg/dL Estim Creat Clear Calc 71 ml/min Estimated GFR > 60 (59 - ) Glucose 112 H (65-110) mg/dL Lactic Acid 1.6 (0.7-2.0) mmol/L Calcium 10.1 (8.4-10.2) mg/dL Magnesium 2.0 (1.6-2.3) mg/dL Total Bilirubin 0.6 (0.2-1.3) mg/dL AST 41 (17-59) U/L ALT 31 (6-50) U/L Alkaline Phosphatase 101 (38-126) U/L C-Reactive Protein 1.4 H (<1.0) mg/dL Total Protein 9.3 H (6.3-8.2) g/dL Albumin 5.1 (3.5-5.1) g/dL Lipase 291 (23-300) U/L Urine Color Yellow (Yellow) Urine Appearance Cloudy H (Clear) Urine pH 5.0 (5.0-9.0) Ur Specific [place] 1.019 (1.001-1.035) Urine Protein Trace (Negative) mg/dL Urine Glucose (UA) Negative (Negative) mg/dL Urine Ketones Trace H (Negative) mg/dL Ur Blood (Man) Negative (Negative) Urine Nitrate Negative (Negative) Urine Bilirubin Negative (Negative) Urine Urobilinogen 0.2 (<2.0) mg/dL Leukocyte Esterase Rfl Negative (Negative) HUA/UL Urine RBC 0-2 (0-2) /hpf Urine WBC 0-5 (0-3) /hpf Ur Squamous Epith Cells None seen (Few) /hpf Urine Bacteria None seen /hpf Urine Casts 0-2 <Guido Richardson, DO - Last Filed: 05/11/25 06:47> Lab Results 05/11/25 05/11/25 Range/Units 06:04 06:07 WBC 4.9 (4.5-10.0) K/mm3 RBC 4.55 L (4.6-6.20) M/mm3 Hgb 15.3 (14.0-18.0) g/dL Hct 45.1 (42.0-52.0) % MCV 99.1 (80-100) fl MCH 33.6 (26-34) pg MCHC 33.9 (32-36) g/dl RDW 13.7 (11.5-14.5) % Plt Count 236 (150-375) k/mm3 MPV 10.0 (7.4-10.4) fl Immature Gran % (Auto) 0.4 (0-0.5) % Neut % (Auto) 51.6 (45.5-73.1) % Lymph % (Auto) 30.2 (18.3-44.2) % Scurry % (Auto) 14.2 H (2.6-8.5) % Eos % (Auto) 2.8 (0-4.4) % Baso % (Auto) 0.8 (0.2-1.2) % Lymph # (Auto) 1.49 (0.9-3.2) K/mm3 Scurry # (Auto) 0.7 H (0.1-0.6) K/mm3 Eos # (Auto) 0.1 (0-0.3) K/mm3 Baso # (Auto) 0.0 (0.0-0.1) K/mm3 Abs Immat Gran (auto) 0.02 (0.00-0.031) K/mm3 Absolute Neuts (auto) 2.6 (1.3-6.7) K/mm3 Absolute Nucleated RBC 0.000 (0.0-0.012) K/mm3 Nucleated RBC % 0.0 (0.0-0.2) % PT 12.7 (11.1-14.7) Seconds INR 1.0 APTT 26.4 (22.3-36.8) Seconds Sodium 141 (137-145) mmol/L Potassium 3.9 (3.4-5.0) mmol/L Chloride 108 H (98-107) mmol/L Carbon Dioxide 23 (22-30) mmol/L Anion Gap 10 (4-12) mmol/L BUN 16 (9-20) mg/dL Creatinine 0.99 (0.7-1.3) mg/dL Estim Creat Clear Calc 71 ml/min Estimated GFR > 60 (59 - ) Glucose 112 H (65-110) mg/dL Lactic Acid 1.6 (0.7-2.0) mmol/L Calcium 10.1 (8.4-10.2) mg/dL Magnesium 2.0 (1.6-2.3) mg/dL Total Bilirubin 0.6 (0.2-1.3) mg/dL AST 41 (17-59) U/L ALT 31 (6-50) U/L Alkaline Phosphatase 101 (38-126) U/L C-Reactive Protein 1.4 H (<1.0) mg/dL Total Protein 9.3 H (6.3-8.2) g/dL Albumin 5.1 (3.5-5.1) g/dL Lipase 291 (23-300) U/L Urine Color Yellow (Yellow) Urine Appearance Cloudy H (Clear) Urine pH 5.0 (5.0-9.0) Ur Specific [place] 1.019 (1.001-1.035) Urine Protein Trace (Negative) mg/dL Urine Glucose (UA) Negative (Negative) mg/dL Urine Ketones Trace H (Negative) mg/dL Ur Blood (Man) Negative (Negative) Urine Nitrate Negative (Negative) Urine Bilirubin Negative (Negative) Urine Urobilinogen 0.2 (<2.0) mg/dL Leukocyte Esterase Rfl Negative (Negative) HUA/UL Urine RBC 0-2 (0-2) /hpf Urine WBC 0-5 (0-3) /hpf Ur Squamous Epith Cells None seen (Few) /hpf Urine Bacteria None seen /hpf Urine Casts 0-2 <Shade James MD - Last Filed: 05/11/25 07:41> Imaging Data Radiologist's impression: ITS Impressions Abdomen/Pelvis CTA 05/11/25 07:09 IMPRESSION: 1. No acute abnormality. <Guido Richardson DO - Last Filed: 05/11/25 06:47> ITS Impressions Abdomen/Pelvis CTA 05/11/25 07:09 IMPRESSION: 1. No acute abnormality. <Shade James MD - Last Filed: 05/11/25 07:41> Discharge Plan Discharge Clinical Impression: Abdominal pain Qualifiers: Abdominal location: right lower quadrant Qualified Code(s): R10.31 - Right lower quadrant pain <DO Art Valera Last Filed: 05/11/25 06:47> Patient Disposition: Other <DO Art Valera Last Filed: 05/11/25 06:47> Condition: Stable <Guido Richardson DO - Last Filed: 05/11/25 06:47> Instructions: Antibiotic Form <Guido Richardson DO - Last Filed: 05/11/25 06:47> Additional Instructions: Return to the emergency department if you develop severe abdominal pain, severe nausea and vomiting to the point where you are unable to keep down fluids, if you develop chest pain or difficulty breathing, blood in your stool, dizziness or fainting, or if you develop any other new or concerning symptoms as these could be signs of more serious medical illness. Try to stay well hydrated. <Guido Richardson DO - Last Filed: 05/11/25 06:47> Patient Language: Greek <Guido Richardson DO - Last Filed: 05/11/25 06:47> Prescriptions: New naproxen 375 mg tablet 375 mg PO BID Qty: 14 0RF No Action naproxen sodium [Aleve] 220 mg tablet 220 mg PO DAILY aspirin [Chelsea Low Dose Aspirin] 81 mg Tablet,Delayed Release (Dr/Ec) 81 mg PO DAILY cetirizine [Zyrtec] 10 mg Tablet 10 mg PO DAILY losartan 100 mg tablet 100 mg PO DAILY Qty: 90 2RF omeprazole 40 mg capsule,delayed release(DR/EC) See Rx Instructions .ROUTE .COMPLEX Qty: 90 3RF Dose Instruction: TAKE 1 CAPSULE DAILY Rx Instructions: TAKE 1 CAPSULE DAILY rosuvastatin [Crestor] 5 mg tablet 5 mg PO DAILY Qty: 90 2RF metoprolol succinate 25 mg tablet extended release 24 hr See Rx Instructions .ROUTE .COMPLEX Qty: 90 1RF Dose Instruction: TAKE 1 TABLET DAILY Rx Instructions: TAKE 1 TABLET DAILY montelukast 10 mg tablet 10 mg PO DAILY Qty: 90 2RF albuterol sulfate 90 mcg/actuation HFA aerosol inhaler See Rx Instructions .ROUTE .COMPLEX Qty: 8.5 3RF Dose Instruction: USE 1 TO 2 INHALATIONS EVERY 4 HOURS NEEDED FOR SHORTNESS OF BREATH OR WHEEZING Rx Instructions: USE 1 TO 2 INHALATIONS EVERY 4 HOURS NEEDED FOR SHORTNESS OF BREATH OR WHEEZING <DO Art Valera Last Filed: 05/11/25 06:47> Follow-up/Referrals: Antolin Mcintyre MD [Primary Care Provider, Family Practice] - 1 Week <Gudio Richardson, - Last Filed: 05/11/25 06:47>
[2025-05-11 06:15] LABS: Add Urine Microscopic? YES; Appearance Urine Cloudy (Clear); Glucose Urine UA Negative (Negative); Leukocyte Esterase Ur Negative LEU/UL (Negative); Nitrate Urine Negative (Negative); Non Pathogenic Casts 0-2; Specific Grav Ur 1.019 (1.001-1.035)
[2025-05-11 06:30] LABS: INR 1.0; Partial Thromboplastin Time 26.4 Seconds (22.3-36.8); Prothrombin Time 12.7 Seconds (11.1-14.7)
[2025-05-11 06:32] VITALS: BP 149/86; PULSE 92; RESP 12; O2SAT 98
[2025-05-11 06:37] LABS: Alanine Aminotransferase 31 U/L (6-50); Albumin Level 5.1 g/dL (3.5-5.1); Alkaline Phosphatase 101 U/L (38-126); Anion Gap 10 mmol/L (4-12); Aspartate Amino Transferase 41 U/L (17-59); Bilirubin,Total 0.6 mg/dL (0.2-1.3); Blood Urea Nitrogen 16 mg/dL (9-20); CRP 1.4 mg/dL (<1.0); Calcium 10.1 mg/dL (8.4-10.2); Carbon Dioxide 23 mmol/L (22-30); Chloride 108 mmol/L (98-107); Estimated CRCL calculation 71 ml/min; Estimated Glomerular Filt Rate > 60; Glucose 112 mg/dL (65-110); Lipase 291 U/L (23-300); Magnesium 2.0 mg/dL (1.6-2.3); Potassium 3.9 mmol/L (3.4-5.0); Sodium 141 mmol/L (137-145); Total Protein 9.3 g/dL (6.3-8.2)
[2025-05-11] MEDS: ONDANSETRON INJ 4 MG/2 ML VIAL IV PUSH (06:37)
[2025-05-11 07:15] VITALS: BP 164/75; PULSE 88; RESP 12; O2SAT 96
[2025-05-11 07:16] VITALS: BP 156/84; PULSE 86; RESP 14; O2SAT 95
[2025-05-11 07:31] VITALS: BP 164/89; PULSE 86; RESP 12; O2SAT 95
== END 2025-05-11 07:52 | disposition home or self-care (01) ==
PROVIDERS: Emergency Provider Student in an Organized Health Care Education/Training Program; PCP Family Medicine
DX: R10.31 Right lower quadrant pain (principal); I10 Essential (primary) hypertension; J45.909 Unspecified asthma, uncomplicated; E78.2 Mixed hyperlipidemia; K22.70 Barrett's esophagus without dysplasia; K21.9 Gastro-esophageal reflux disease without esophagitis; Z87.891 Personal history of nicotine dependence
CPT/HCPCS: 36415; 74174; 80053; 81001; 83605; 83690; 83735; 85025; 85610; 85730; 86140; 96361; 96374; 96375; 99284; J2270; J2405; J7030; Q9967